=== PATIENT | female | born 1995 | race Caucasian/White ===

== ENCOUNTER 2024-08-14 08:22 | Emergency (ER) | payer SELFPAY ==
--- OUTSIDE RECORDS SUMMARY | 2024-08-14 08:31 | XMS REPORT | Continuity of Care Document ---
Author Name Unknown Address [address] [facility] [address] [place] [address] [facility] Address [address] [facility] [place] [address] Care Team Providers Care Environmental Compliance Officer Name Role Phone AMY CASTILLO Primary Care Physician Unavailab Davidson, DR REYES Attending Clinician Unavailable [phone] Attending Clinician Unavailable [id number] Attending Clinician Unavailable Doctor Unassigned, [place] Attending Clinician U marcia ESTES, DR MATHEUS BERTRAND Attending Clinician Unavailable MEERA, DR MATHEUS BERTRAND Attending Clinician Unavailable Dung Attending Clinician Unavaila DENISSE Zimmerman Attending Clinician U DENISSE Sellers Attending Clinician U Jayy Burns Attending Clinician + JAYY BYRD Attending Clinician Unavail able Maximus, Momo Nurse Attending Clinician Leighton Marin MD Attending Clinician [phone] LEIGHTON GRIFFIN Attending Clinician Unavailable 1, [facility] Room Attending Clinician UnavailDelaney Wilkins MD Attending Clinician [phone] Shanae Thornton Attending Clinician [phone] Lab, Momo Attending Clinician Unavailable 4, [facility] Room Attending Clinician UnavailVikas Zavala MD Attending Clinician [phone] VIKAS CONNELLY Attending Clinician Unavailable Service/Gensurg, Surgery C Attending Clinician U Kirit Schmid MD Attending Clinician [phone] KIRIT SEYMOUR Attending Clinician UnavailBruce Godinez MD Attending Clinician [phone] BRUCE RUIZ Attending Clinician Unavailable Didi Garcia DO Attending Clinician [phone] DIDI GARCIA Attending Clinician UnavailLEIGHTON Mcclelland Admitting Clinician Unavailable DR AMY CASTILLO Admitting Clinician Unavailable DR MATHEUS ESTES Admitting Clinician Unavailable Malik_Karuna Admitting Clinician UnavailLeighton Avery MD Admitting Clinician [phone] KIRIT SEYMOUR Admitting Clinician Unavailab BRUCE [place] Admitting Clinician Unavailable Payers Payer Name Policy Type Policy Number Effective Date Expirati on Date Source [facility] [id number] [facility] [id number] 2019 00:00:00 [id number] 2022 [facility] [id number] 2022 00:00:00 [facility] [id number] MEDICAID PENDING PENDING 2019 00:00:00 Problems Condition Name Condition Details Condition Category Status Onset Date Resolution Date Last Treatment Date Treating Clinician Comments Source PROM (premature rupture of membranes) PROM (premature rupture of membranes) Disease Active 05-25 00:00: 00 [facility] 36 weeks gestation of 36 weeks gestation of Disease Active 05-25 00:00: 00 [facility] S/P tubal ligation S/P tubal ligation Disease Active 05-25 00:00: 00 [facility] Obesity (BMI 30-39.9) Obesity (BMI 30-39.9) Disease Active 05-25 00:00: 00 [facility] Liveborn infant, of burgos , born in hospital by delivery Liveborn , of burgos , born in hospital by delivery Disease Active 05-25 00:00: 00 [facility] LGA (large for gestationa l age) fetus affecting management of mother LGA (large for gestationa l age) fetus affecting management of mother Disease Active 2019-05 00:00: 00 [facility] Shortness of breath during Shortness of breath during Disease Active 2019-05 00:00: 00 [facility] Pain of round ligament during Pain of round ligament during Disease Active 2019-05 00:00: 00 [facility] Anemia of mother in , antepartum Anemia of mother in , antepartum Disease Active 2019-05 00:00: 00 [facility] Anemia of mother in , antepartum Anemia of mother in , antepartum Disease Active 20201 1-10 00:00: 00 [facility] Vaginal yeast infection Vaginal yeast infection Disease Active 7-23 00:00: 00 [facility] Susceptibl e to varicella (non-immun e), currently Susceptibl e to varicella (non-immun e), currently Disease Active 7-15 00:00: 00 Overview: Formattin g of this note might be different from the original. Address pp [facility] Supervisio n of high-risk Supervisio n of high-risk Disease Active 7-14 00:00: 00 [facility] Multiparit y Multiparit y Disease Active 12-03 00:00: 00 [facility] History of section History of section Disease Active 12-03 00:00: 00 [facility] History of cholecyste ctomy History of cholecyste ctomy Disease Active 12-03 00:00: 00 Overview: Formattin g of this note might be different from the original. Reports in 09/2019 [facility] History of abnormal cervical Pap smear History of abnormal cervical Pap smear Disease Active 12-03 00:00: 00 Overview: Formattin g of this note might be different from the original. ROR requested today, patient reports she was told she will need a repeat pap 6 months from 05/2019, pap completed today 12-04-19 [facility] Vulvovagin al candidiasi s Vulvovagin al candidiasi s Disease Active 0 5-27 00:00: 00 [facility] Clostridiu m difficile diarrhea Clostridiu m difficile diarrhea Disease Active 20200 5-26 00:00: 00 [facility] Obesity affecting Obesity affecting Disease Active 20200 -22 00:00: 00 [facility] Cholecysti tis Cholecysti tis Disease Active 20200 5-22 00:00: 00 [facility] Cholelithi asis Cholelithi asis Disease Active 0 5-22 00:00: 00 [facility] Obesity (BMI 30-39.9) Obesity (BMI 30-39.9) Disease Active 10-11 00:00: 00 [facility] Right upper quadrant abdominal pain Right upper quadrant abdominal pain Disease Active 10-11 00:00: 00 Overview: Added automatic ally from request for surgery [id number] [facility] No known active problems No known active problems Disease [facility] Allergies, Adverse Reactions, Alerts Allergy Name Allergy Type Status Severity Reaction(s) Onset Date Inactive Date Treating Clinician Comments Source No Known Allergie s DA Active U 2018-05 00:00: 00 [facility] NO KNOWN ALLERGIE S Drug Class Active [facility] No Known Drug Allergie s MA Active UNKNOWN [facility] Social History Social Habit Start Date Stop Date Quantity Comments Source ASSERTION 2019-09-30 00:00:00 [facility] Exposure to SARS-CoV-2 (event) Not sure [facility] Gender identity [facility] Sexual orientation [facility] History SDOH Alcohol Std Drinks [facility] History SDOH Alcohol Binge [facility] Alcohol intake 2022-12-04 00:00:00 2022-12-04 00:00:00 Lifetime non-drinker (finding) [facility] Education 2020-05-25 00:00:00 2020-05-25 00:00:00 12 [facility] History SDOH Financial 2020-05-25 00:00:00 2020-05-25 00:00:00 2 [facility] History SDOH Food Worry 2020-05-25 00:00:00 2020-05-25 00:00:00 1 [facility] History SDOH Food Scarcity 2020-05-25 00:00:00 2020-05-25 00:00:00 1 [facility] History SDOH Transport Med 2020-05-25 00:00:00 2020-05-25 00:00:00 2 [facility] History SDOH Transport Non-Med 2020-05-25 00:00:00 2020-05-25 00:00:00 2 [facility] History of Social function 2019-12-04 00:00:00 2019-12-04 00:00:00 [facility] History SDOH Alcohol Frequency 2019-12-04 00:00:00 2019-12-04 00:00:00 1 [facility] Tobacco use and exposure 2019-11-06 00:00:00 2019-11-06 00:00:00 Smokeless tobacco non-user [facility] Sex Assigned At 1995 00:00:00 1995 00:00:00 [facility] Smoking Status Start Date Stop Date Source Never Smoker [facility] Unknown if ever smoked [facility] Medications Ordered Medication Name Filled Medication Name Start Date Stop Date Current Medication? Ordering Clinician Indication Dosage Frequency Signature (SIG) Comments Components Source ondansetron (ZOFRAN (PF)) injection 4 mg 12-05 06:00: 00 12-05 05:08 :00 No 4mg 4 mg, Slow IV Push, ONCE, 1 dose, On 12/05/22 at 0100, TORO [facility] morpHINE (4 mg/mL) injection 4 mg 12-05 04:15: 00 12-05 04:10 :00 No 4mg 4 mg, Slow IV Push, ONCE, 1 dose, On 12/04/22 at 2315, STAT [facility] cefTRIAXone (ROCEPHIN) 1,000 mg in NaCl 0.9% (NS) 100 mL MINI-BAG 12-05 03:00: 00 12-05 03:59 :00 No 1000mg 1,000 mg, IV Piggyback, ONCE, 1 dose, On 12/04/22 at 2200, Administer over 30 Minutes, 100 mL
Reas on for Anti-Infec tive: Documented Infection< br>Documen leanna Infection Site: Urine
D uration of Therapy: 7 days [facility] morpHINE (4 mg/mL) injection 4 mg 12-05 02:15: 00 12-05 01:46 :00 No 4mg 4 mg, Slow IV Push, ONCE, 1 dose, [facility] 2115[facility] ([facility]FRAN (PF)) [facility] 4 mg 12-05 02:15: 00 12-05 01:46 :00 No 4mg 4 mg, Slow IV Push, ONCE, 1 dose, On 12/04/22 at 2115, [facility] NaCl 0.9% (NS) bolus infusion 1,000 mL 12-05 02:15: 00 12-05 05:17 :00 No 1000mL at 999 mL/hr, 1,000 mL, IV Infusion, ONCE, 1 dose, On 12/04/22 at 2115, [facility] cefdinir 300 mg capsule 12-05 00:00: 00 12-13 04:59 :00 No [id number] 300mg Take 1 capsule by mouth every 12 (twelve) hours for 7 days. [facility] ibuprofen (IBU) tablet 600 mg 05-27 12:00: 00 Yes 600mg 600 mg, Oral, Q6H ABX, First dose on Tue05/27/20 at 0600, Until Discontinu ed, Routine [facility] vitamin w/FA tablet 05-27 00:00: 00 Yes [id number] 1{tbl} Take 1 tablet by mouth daily. [facility] docusate calcium 240 mg capsule 05-27 00:00: 00 Yes [id number] 240mg Take 1 capsule by mouth once daily as needed for Constipati on. [facility] ferrous sulfate 325 mg (65 mg iron) tablet 05-27 00:00: 00 Yes [id number] 325mg Take 1 tablet by mouth 2 (two) times daily. [facility] ibuprofen 600 mg tablet 05-27 00:00: 00 Yes [id number] 600mg Take 1 tablet by mouth every 6 (six) hours as needed (Pain). Take with food or milk. [facility] acetaminoph en 325 mg tablet 05-27 00:00: 00 Yes [id number] 650mg Take 2 tablets by mouth every 6 (six) hours as needed for Pain (scale 1-3) or Pain (scale 4-6). [facility] vitamin w/FA tablet 05-27 00:00: 00 Yes [id number] 1{tbl} Take 1 tablet by mouth daily. [facility] HYDROcodone -acetaminop hen 5-325 mg tablet 05-27 00:00: 00 06-04 05:59 :00 No [id number] 1{tbl} Take 1 tablet by mouth every 6 (six) hours as needed for Pain (scale 7-10) for up to 7 days. Indication s: acute pain [facility] gabapentin 300 mg capsule 05-27 00:00: 00 06-02 05:59 :00 No [id number] 300mg Take 1 capsule by mouth 3 (three) times daily for 5 days. [facility] acetaminoph en (TYLENOL) tablet 650 mg 05-26 21:00: 00 Yes 650mg 650 mg, Oral, Q6H ABX, First dose on Tue05/26/20 at 1500, Until Discontinu ed, Routine [facility] ascorbic acid (vitamin C) (VITAMIN C) tablet 500 mg 05-26 15:00: 00 Yes 500mg 500 mg, Oral, DAILY, First dose on Tue05/26/20 at 0900, Until Discontinu ed, Routine [facility] HYDROcodone -acetaminop hen (NORCO 5) 5-325 mg tablet 1 tablet 05-26 12:00: 00 Yes 1{tbl} 1 tablet, Oral, Q6HPRN, Starting Tue05/26/20 at 0600, Until Discontinu ed, Routine, Pain (scale 7-10) [facility] ketorolac (TORADOL) injection 30 mg 05-26 12:00: 00 05-27 05:16 :00 No 30mg 30 mg, Slow IV Push, Q6H ABX, 4 doses, First dose on Tue05/26/20 at 0600, Last dose on Tue05/27/20 at 0000, Routine
natural resources faculty member approving Restricted medication : LEIGHTON GRIFFIN [facility] acetaminoph en (TYLENOL) tablet 650 mg 05-26 09:00: 00 05-26 13:22 :00 No 650mg 650 mg, Oral, Q6H, 2 doses, First dose on Tue05/26/20 at 0300, Last dose on Tue05/26/20 at 0600, Routine [facility] simethicone (GAS RELIEF (SIMETHICON E)) chewable tablet 160 mg 05-26 03:00: 00 Yes 160mg 160 mg, Oral, PC+HS, First dose on Tue05/25/20 at 2100, Until Discontinu ed, Routine [facility] acetaminoph en ADULT (OFIRMEV) injection 1,000 mg 05-26 03:00: 00 05-26 03:18 :00 No 1000mg 1,000 mg, IV Infusion, Administer over 15 Minutes, Q6H, 1 dose, First dose on Tue05/25/20 at 2100, Routine
Indicatio n: Perioperat daljit Patient [facility] gabapentin (NEURONTIN) capsule 300 mg 05-26 02:00: 00 Yes 300mg 300 mg, Oral, TID, First dose on Tue05/25/20 at 2000, Until Discontinu ed, Routine [facility] ferrous sulfate tablet 325 mg 05-26 02:00: 00 Yes 325mg 325 mg, Oral, BID, First dose on Tue05/25/20 at 2000, Until Discontinu ed, Routine [facility] lactated ringers IV infusion 1,000 mL 05-26 01:00: 00 05-26 05:36 :00 No 1000mL at 125 mL/hr, 1,000 mL, IV Infusion, ONCE, 1 dose, 05/25/20 at 1900, Routine [facility] rho(D) immune globulin (RHOGAM) syringe 300 mcg 05-26 00:57: 20 Yes 300ug 300 mcg, Intramuscu lar, ONCE, For 1 dose, Conditiona l, Routine [facility] diphenhydrA MINE-0.9 % sod.chlr (BENADRYL) 25 mg/50 mL piggyback 25 mg 05-26 00:57: 06 Yes 25mg 25 mg, IV Piggyback, Administer over 30 Minutes, Q6HPRN, 1 dose, Starting 05/25/20 at 1857, Until Discontinu ed, Routine, Itching [facility] ondansetron (ZOFRAN (PF)) injection 4 mg 05-26 00:57: 06 Yes 4mg 4 mg, Slow IV Push, Q8HPRN, Starting [place] 05/25/20 at 1857, Until Discontinu ed, Routine, Nausea and Vomiting (N/V) [facility] docusate calcium (SURFAK) capsule 240 mg 05-26 00:57: 06 Yes 240mg 240 mg, Oral, QDAILYPRN, Starting [place] 05/25/20 at 1857, Until Discontinu ed, Routine, Constipati on [facility] magnesium hydroxide (MILK OF MAGNESIA) 400 mg/5 mL suspension 30 mL 05-26 00:57: 06 Yes 30mL 30 mL, Oral, QDAILYPRN, Starting [place] 05/25/20 at 1857, Until Discontinu ed, Routine, Constipati on [facility] diphenhydrA MINE (BENADRYL) tablet 25 mg 05-26 00:57: 05 Yes 25mg 25 mg, Oral, Q6HPRN, Starting [place] 05/25/20 at 1857, Until Discontinu ed, Routine, Sleep, Itching [facility] bisacodyL (DULCOLAX) suppository 10 mg 05-26 00:57: 05 Yes 10mg 10 mg, Rectal, QDAILYPRN, Starting [place] 05/25/20 at 1857, Until Discontinu ed, Routine, Constipati on [facility] sodium chloride 0.9 % irrigation solution 05-25 22:25: 00 Yes PRN, Starting [place] 05/25/20 at 1625, Until Discontinu ed, Intra-op [facility] naloxone (NARCAN) injection 0.4 mg 05-25 20:52: 23 05-28 00:14 :19 No .4mg 0.4 mg, Slow IV Push, PRN - SEE INSTRUCTIO NS, Starting 05/25/20 at 1452, Until 05/27/20 at 1814, Routine, Analgesia Recovery [facility] nalbuphine (NUBAIN) injection 5 mg 05-25 20:52: 22 Yes 5mg 5 mg, Intravenou s, PRN, 1 dose, Starting 05/25/20 at 1452, Until Discontinu ed, Routine, Itching [facility] terbutaline (BRETHINE) injection 0.25 mg 05-25 20:30: 00 05-25 19:34 :00 No .25mg 0.25 mg, Subcutaneo us, ONCE, 1 dose, 05/25/20 at 1430, Routine [facility] betamethaso ne acet,sod phos (CELESTONE SOLUSPAN) 6 mg/mL injection 12 mg 05-25 19:45: 00 05-25 19:05 :00 No 12mg 12 mg, Intramuscu lar, ONCE, 1 dose, 05/25/20 at 1345, Routine [facility] lactated ringers IV infusion 1,000 mL 05-25 19:45: 00 05-25 19:04 :00 No 1000mL at 999 mL/hr, 1,000 mL, IV Infusion, ONCE, 1 dose, 05/25/20 at 1345, Routine [facility] D5W-LR IV infusion 1,000 mL 05-25 18:45: 00 05-26 00:57 :22 No 1000mL at 125 mL/hr, IV Infusion, CONTINUOUS , Starting 05/25/20 at 1245, Until 05/25/20 at 1857, Routine [facility] azithromyci n (ZITHROMAX) 500 mg in NaCl 0.9% (NS) 250 mL VIAL-MATE IV piggyback 05-25 18:39: 56 05-25 21:00 :00 No 500mg 500 mg, IV Piggyback, O.R. HOLDING ONCE, 1 dose, Starting 05/25/20 at 1239, Until Discontinu ed, 250 mL
Reas on for Anti-Infec tive: Surgical Prophylaxi s
Surgi lyudmila Prophylaxi s: FUND DEVELOPMENT MANAGER< br>Duratio n of therapy: within 24 hours of surgery
Reason for Anti-Infec tive: Surgical Prophylaxi s [facility] sodium citrate-cit adelia acid (BICITRA) 500-334 mg/5 mL solution 30 mL 05-25 18:39: 25 05-25 19:36 :00 No 30mL 30 mL, Oral, PRE-PROCED URE ONCE, 1 dose, Starting 05/25/20 at 1239, Until Discontinu ed, Routine, Surgery/Pr ocedure [facility] ceFAZolin in dextrose (iso-os) (ANCEF) 2 gram/100 mL Piggyback 2 g 05-25 18:39: 24 05-25 20:00 :00 No 2000mg 2 g (2,000 mg), IV Piggyback, O.R. HOLDING ONCE, 1 dose, Starting 05/25/20 at 1239, Until Discontinu ed, 100 mL
Reas on for Anti-Infec tive: Surgical Prophylaxi s
Surgi lyudmila Prophylaxi s: FUND DEVELOPMENT MANAGER
Duration of therapy: within 24 hours of surgery [facility] ascorbic acid, vitamin C, 500 mg tablet 2019-05 00:00: 00 05-27 00:00 :00 No [id number] 500mg Take 1 tablet by mouth 3 (three) times daily. [facility] ascorbic acid, vitamin C, 500 mg tablet 2019-05 00:00: 00 Yes [id number] 500mg Take 1 tablet by mouth 3 (three) times daily. [facility] ferrous sulfate 325 mg (65 mg iron) tablet 2019-05 00:00: 00 05-27 00:00 :00 No [id number] 325mg Take 1 tablet by mouth 2 (two) times daily. [facility] proMETHazin e 25 mg tablet 2019-05 00:0005-27 00:00 :00 No [id number] 25mg Take 1 tablet by mouth every 4 (four) hours as needed for Nausea and Vomiting (N/V). [facility] terconazole 80 mg vaginal suppository 12-12 00:00: 12-16 04:59 :00 No [id number] 80mg Insert 1 Suppositor y into vagina at bedtime for 3 days. [facility] acetaminoph en 500 mg tablet 10-19 00:00: 05-27 00:00 :00 No [id number] 500mg Take 1 tablet by mouth every 6 (six) hours. [facility] ibuprofen 800 mg tablet 10-19 00:0005-27 00:00 :00 No [id number] 800mg Take 1 tablet by mouth every 6 (six) hours as needed (alternate with acetaminop hen for pain). [facility] traMADol 50 mg tablet 10-19 00:00: 05-27 00:00 :00 No [id number] 50mg Take 1 tablet by mouth every 6 (six) hours as needed for Pain (scale 4-6). [facility] ketorolac (TORADOL) injection 30 mg 10-03 10:30: 00 10-03 09:26 :00 No 30mg 30 mg, Slow IV Push, ONCE, 1 dose, Carol 10/04/19 at 0530, Routine
natural resources faculty member approving Restricted medication : BRUCE RUIZ [facility] iohexol (OMNIPAQUE 350 BULK-150 mL) injection 120 mL 10-03 10:15: 00 10-03 10:15 :00 No 120mL 120 mL, Intravenou s, ONCE, 1 dose, Carol 10/04/19 at 0515, Routine [facility] NaCl 0.9% (NS) bolus infusion 1,000 mL 10-03 10:15: 00 10-03 10:17 :00 No 1000mL at 999 mL/hr, 1,000 mL, IV Infusion, ONCE, 1 dose, Carol 10/04/19 at 0515, STAT [facility] ondansetron (ZOFRAN (PF)) injection 4 mg 10-03 10:15: 00 10-03 09:13 :00 No 4mg 4 mg, Slow IV Push, ONCE, 1 dose, Carol 10/04/19 at 0515, [facility] maalox:diph enhydrAMINE :lidocaine 2 % viscous 1:1:1 (FIRST-MOUT HWASH BLM) oral suspension 15 mL 09-29 17:15: 00 09-29 17:40 :00 No 15mL 15 mL, Oral, ONCE, 1 dose, 09/30/19 at 1215, [facility] ondansetron (ZOFRAN (PF)) injection 4 mg 09-29 16:30: 00 09-29 15:22 :00 No 4mg 4 mg, Slow IV Push, ONCE, 1 dose, 09/30/19 at 1130, [facility] morpHINE injection 4 mg 09-29 16:30: 00 09-29 15:23 :00 No 4mg 4 mg, Slow IV Push, ONCE, 1 dose, 09/30/19 at 1130, [facility] NaCl 0.9% (NS) bolus infusion 1,000 mL 09-29 16:30: 00 09-29 17:00 :00 No 1000mL at 999 mL/hr, 1,000 mL, Intravenou s, ONCE, 1 dose, 09/30/19 at 1130, [facility] sodium chloride (NS) injection 5 mL 09-29 15:18: 47 Yes 5mL 5 mL, Intravenou s, PRN, Starting 09/30/19 at 1018, Until Discontinu ed, Routine, IV line flushing [facility] acetaminoph en 300 mg-codeine 30 mg tablet TAKE ONE (1) TABLET BY MOUTH EVERY 6 (SIX) HOURS NEEDED FOR PAIN. acetaminoph en 300 mg-codeine 30 mg tablet TAKE ONE (1) TABLET BY MOUTH EVERY 6 (SIX) HOURS NEEDED FOR PAIN. No acetaminop hen 300 mg-codeine 30 mg tablet TAKE ONE (1) TABLET BY MOUTH EVERY 6 (SIX) HOURS NEEDED FOR PAIN. [facility] ibuprofen 800 mg tablet Take 1 tablet 3 times a day by oral route for 1 day. ibuprofen 800 mg tablet Take 1 tablet 3 times a day by oral route for 1 day. No 1 TID ibuprofen 800 mg tablet Take 1 tablet 3 times a day by oral route for [address] [facility] No known medications No [facility] Immunizations Ordered Immunization Name Filled Immunization Name Date Status Comments Source Influenza Virus Vaccine Quad .5 mL IM 6+ MO 2020-04-01 00:00:00 Completed [facility] TDAP 2020-04-01 00:00:00 Completed [facility] Influenza Virus Vaccine Quad .5 mL IM 6+ MO 2020-04-01 00:00:00 Completed [facility] TDAP 2020-04-01 00:00:00 Completed [facility] Influenza Virus Vaccine Quad .5 mL IM 6+ MO 2020-04-01 00:00:00 Completed [facility] TDAP 2020-04-01 00:00:00 Completed [facility] Influenza Virus Vaccine Quad .5 mL IM 6+ MO 2020-04-01 00:00:00 Completed [facility] TDAP 2020-04-01 00:00:00 Completed [facility] Influenza Virus Vaccine Quad .5 mL IM 6+ MO 2020-04-01 00:00:00 Completed [facility] TDAP 2020-04-01 00:00:00 Completed [facility] Influenza Virus Vaccine Quad .5 mL IM 6+ MO 2020-04-01 00:00:00 Completed [facility] TDAP 2020-04-01 00:00:00 Completed [facility] Influenza Virus Vaccine Quad .5 mL IM 6+ MO 2020-04-01 00:00:00 Completed [facility] TDAP 2020-04-01 00:00:00 Completed [facility] Influenza Virus Vaccine Quad .5 mL IM 6+ MO 2020-04-01 00:00:00 Completed [facility] TDAP 2020-04-01 00:00:00 Completed [facility] Influenza Virus Vaccine Quad .5 mL IM 6+ MO 2020-04-01 00:00:00 Completed [facility] TDAP 2020-04-01 00:00:00 Completed [facility] Influenza Virus Vaccine Quad .5 mL IM 6+ MO 2020-04-01 00:00:00 Completed [facility] TDAP 2020-04-01 00:00:00 Completed [facility] Influenza Virus Vaccine Quad .5 mL IM 6+ MO 2020-04-01 00:00:00 Completed [facility] TDAP 2020-04-01 00:00:00 Completed [facility] Influenza Virus Vaccine Quad .5 mL IM 6+ MO 2020-04-01 00:00:00 Completed [facility] TDAP 2020-04-01 00:00:00 Completed [facility] Influenza Virus Vaccine Quad .5 mL IM 6+ MO 2020-04-01 00:00:00 Completed [facility] TDAP 2020-04-01 00:00:00 Completed [facility] Influenza Virus Vaccine Quad .5 mL IM 6+ MO 2020-04-01 00:00:00 Completed [facility] TDAP 2020-04-01 00:00:00 Completed [facility] Influenza Virus Vaccine Quad .5 mL IM 6+ MO (FLUZONE/FLULAVAL/F LUARIX) Unknown Completed [facility] TDAP Unknown Completed [facility] Vital Signs Vital Name Observation Time Observation Value Comments S ource BP Diastolic 2022-12-09 00:00:00 75 mm[Hg] [place] [facility] Height 2022-12-09 00:00:00 61 [in_i] [place] [facility] BMI (Body Mass Index) 2022-12-09 00:00:00 40.6 kg/m2 [place] [facility] BP Systolic 2022-12-09 00:00:00 112 mm[Hg] [place] [facility] Body Weight 2022-12-09 00:00:00 215 [lb_av] [place] [facility] Heart rate 2022-12-05 05:06:00 97 /min [facility] Respiratory rate 2022-12-05 05:06:00 20 /min [facility] Oxygen saturation in Arterial blood by Pulse oximetry 2022-12-05 05:06:00 96 /min [facility] Systolic blood pressure 2022-12-05 05:00:00 109 mm[Hg] [facility] Diastolic blood pressure 2022-12-05 05:00:00 69 mm[Hg] [facility] Body temperature 2022-12-05 01:02:00 37.72 [facility] Body height 2022-12-05 01:02:00 157.5 cm [facility] Body weight 2022-12-05 01:02:00 102.059 kg [facility] BMI 2022-12-05 01:02:00 41.15 kg/m2 [facility] Systolic blood pressure 2020-06-02 19:11:00 133 mm[Hg] [facility] Diastolic blood pressure 2020-06-02 19:11:00 73 mm[Hg] [facility] Heart rate 2020-06-02 19:11:00 84 /min [facility] Body temperature 2020-06-02 19:11:00 36.83 Helene [facility] Respiratory rate 2020-06-02 19:11:00 16 /min [facility] Body height 2020-06-02 19:11:00 157.5 cm [facility] Body weight 2020-06-02 19:11:00 79.89 kg [facility] BMI 2020-06-02 19:11:00 32.21 kg/m2 [facility] Systolic blood pressure 2020-05-27 13:54:00 123 mm[Hg] [facility] Diastolic blood pressure 2020-05-27 13:54:00 71 mm[Hg] [facility] Heart rate 2020-05-27 13:54:00 90 /min [facility] Body temperature 2020-05-27 13:54:00 37.06 Helene [facility] Respiratory rate 2020-05-27 13:54:00 18 /min [facility] Oxygen saturation in Arterial blood by Pulse oximetry 2020-05-27 11:00:00 99 /min [facility] Body height 2020-05-25 18:00:00 157.5 cm [facility] Body weight 2020-05-25 18:00:00 86.909 kg Univ [facility] BMI 2020-05-25 18:00:00 35.04 kg/m2 [facility] Systolic blood pressure 2020-05-13 21:23:00 121 mm[Hg] [facility] Diastolic blood pressure 2020-05-13 21:23:00 74 mm[Hg] [facility] Heart rate 2020-05-13 21:23:00 111 /min [facility] Body temperature 2020-05-13 21:23:00 36.61 Helene [facility] Respiratory rate 2020-05-13 21:23:00 16 /min [facility] Body height 2020-05-13 21:23:00 157.5 cm [facility] Body weight 2020-05-13 21:23:00 88.536 kg Univ [facility] BMI 2020-05-13 21:23:00 35.70 kg/m2 [facility] Systolic blood pressure 2020-04-30 20:09:00 121 mm[Hg] [facility] Diastolic blood pressure 2020-04-30 20:09:00 76 mm[Hg] [facility] Heart rate 2020-04-30 20:09:00 113 /min [facility] Body temperature 2020-04-30 20:09:00 36.17 Helene [facility] Respiratory rate 2020-04-30 20:09:00 16 /min [facility] Body height 2020-04-30 20:09:00 157.5 cm [facility] Body weight 2020-04-30 20:09:00 88.933 kg Univ [facility] BMI 2020-04-30 20:09:00 35.86 kg/m2 [facility] Systolic blood pressure 2020-04-16 19:07:00 115 mm[Hg] [facility] Diastolic blood pressure 2020-04-16 19:07:00 74 mm[Hg] [facility] Heart rate 2020-04-16 19:07:00 119 /min [facility] Body temperature 2020-04-16 19:07:00 36.33 Helene [facility] Respiratory rate 2020-04-16 19:07:00 16 /min [facility] Body height 2020-04-16 19:07:00 157.5 cm [facility] Body weight 2020-04-16 19:07:00 87.289 kg [facility] BMI 2020-04-16 19:07:00 35.20 kg/m2 [facility] Systolic blood pressure 2020-04-01 20:10:00 112 mm[Hg] [facility] Diastolic blood pressure 2020-04-01 20:10:00 74 mm[Hg] [facility] Heart rate 2020-04-01 20:10:00 112 /min [facility] Body temperature 2020-04-01 20:10:00 36.78 Helene [facility] Respiratory rate 2020-04-01 20:10:00 16 /min [facility] Body height 2020-04-01 20:10:00 157.5 cm [facility] Body weight 2020-04-01 20:10:00 87.658 kg Univ [facility] BMI 2020-04-01 20:10:00 35.35 kg/m2 [facility] Systolic blood pressure 2020-03-17 20:28:00 131 mm[Hg] [facility] Diastolic blood pressure 2020-03-17 20:28:00 77 mm[Hg] [facility] Heart rate 2020-03-17 20:28:00 109 /min [facility] Body temperature 2020-03-17 20:28:00 36.83 Helene [facility] Respiratory rate 2020-03-17 20:28:00 16 /min [facility] Body height 2020-03-17 20:28:00 157.5 cm [facility] 2020-03-17 20:28:00 88.622 kg [facility] BMI 2020-03-17 20:28:00 35.73 kg/m2 [facility] Systolic blood pressure 2020-01-01 19:24:00 126 mm[Hg] [facility] Diastolic blood pressure 2020-01-01 19:24:00 75 mm[Hg] [facility] Heart rate 2020-01-01 19:24:00 99 /min [facility] Body temperature 2020-01-01 19:24:00 36.5 Helene [facility] Respiratory rate 2020-01-01 19:24:00 16 /min [facility] Body height 2020-01-01 19:24:00 157.5 cm [facility] Body weight 2020-01-01 19:24:00 86.354 kg Univ [facility] BMI 2020-01-01 19:24:00 34.82 kg/m2 [facility] Systolic blood pressure 2019-12-04 13:45:00 112 mm[Hg] [facility] Diastolic blood pressure 2019-12-04 13:45:00 68 mm[Hg] [facility] Heart rate 2019-12-04 13:45:00 92 /min [facility] Body temperature 2019-12-04 13:45:00 37 Helene [facility] Respiratory rate 2019-12-04 13:45:00 16 /min [facility] Body height 2019-12-04 13:45:00 157.5 cm [facility] Body weight 2019-12-04 13:45:00 86.807 kg Univ [facility] BMI 2019-12-04 13:45:00 35.00 kg/m2 [facility] Systolic blood pressure 2019-11-06 17:15:00 106 mm[Hg] [facility] Diastolic blood pressure 2019-11-06 17:15:00 69 mm[Hg] [facility] Heart rate 2019-11-06 17:15:00 86 /min [facility] 2019-11-06 17:15:00 36.83 Helene [facility] Respiratory rate 2019-11-06 17:15:00 15 /min [facility] Body height 2019-11-06 17:15:00 157.5 cm [facility] Body weight 2019-11-06 17:15:00 87.544 kg [facility] BMI 2019-11-06 17:15:00 35.30 kg/m2 [facility] Systolic blood pressure 2019-10-04 09:00:00 124 mm[Hg] [facility] Diastolic blood pressure 2019-10-04 09:00:00 89 mm[Hg] [facility] Heart rate 2019-10-04 09:00:00 117 /min [facility] Respiratory rate 2019-10-04 09:00:00 18 /min [facility] Oxygen saturation in Arterial blood by Pulse oximetry 2019-10-04 09:00:00 98 /min [facility] Body temperature 2019-10-04 08:46:00 36.56 Helene [facility] Body height 2019-10-04 08:46:00 157.5 cm [facility] Body weight 2019-10-04 08:46:00 90.719 kg [facility] BMI 2019-10-04 08:46:00 36.58 kg/m2 [facility] Systolic blood pressure 2019-09-30 18:08:00 120 mm[Hg] [facility] Diastolic blood pressure 2019-09-30 18:08:00 72 mm[Hg] [facility] Heart rate 2019-09-30 18:08:00 98 /min [facility] Respiratory rate 2019-09-30 18:08:00 18 /min [facility] Oxygen saturation in Arterial blood by Pulse oximetry 2019-09-30 18:08:00 98 /min [facility] Body weight 2019-09-30 15:14:00 90.719 kg [facility] Procedures Procedure Date / Time Performed Performing Clinician Source US, transvaginal 2022-12-09 00:00:00 Conner castaneda [facility] HB ABO GROUPING 2022-12-05 01:43:00 Denisse Lopez [facility] LIPASE 2022-12-05 01:39:00 Denisse Lopez [facility] TEST, SERUM 2022-12-05 01:39:00 Denisse Mendez [facility] COMP. METABOLIC PANEL ([id number]) 2022-12-05 01:39:00 Denisse Zacarias [facility] CBC WITH DIFF 2022-12-05 01:39:00 Denisse Lopez [facility] URINALYSIS 2022-12-05 01:39:00 Denisse Lopez [facility] CONSENT/REFUSAL FOR DIAGNOSIS AND TREATMENT 2022-12-05 00:53:28 Doctor Unassigned, [place] [facility] CBC WITH DIFF 2020-05-26 08:58:00 Leighton Griffin [facility] VENOUS CORD GAS 2020-05-25 20:54[facility] 2020-05-25 20:52:00 [facility]FF 2020-05-25 18:56:00 Leighton Griffin [facility] HEPATITIS B SURFACE ANTIGEN 2020-05-25 18:56:00 Leighton Griffin [facility] ADC OR SAMIR ONLY - RPR 2020-05-25 18:56:00 Daily Griffin [facility] HIV 1/2 AG-AB WITH REFLEX 2020-05-25 18:56:00 Daily Griffin [facility] COVID-19 (ID NOW RAPID TESTING) 2020-05-25 18:56:00 Leighton Griffin [facility] LAB ONLY COVID INTERPRETATION 2020-05-25 18:56:00 Leighton Griffin [facility] HB ABO GROUPING 2020-05-25 18:54:00 Leighton Griffin [facility] RHO (D) IMMUNE GLOBULIN 2020-05-25 18:54:00 Leighton Griffin [facility] NOTICE OF PRIVACY PRACTICES 2020-05-25 17:45:08 Doctor Unassigned, [place] [facility] CONSENT/REFUSAL FOR DIAGNOSIS AND TREATMENT 2020-05-25 17:40:34 Doctor Unassigned, [place] [facility] ASSIGNMENT OF BENEFITS 2020-05-25 17:40:18 Docto r Unassigned, [place] [facility] POCT URINALYSIS 2020-05-13 21:26:00 Jayy Byrd [facility] POCT URINALYSIS 2020-04-30 20:10:00 Jayy Byrd [facility] POCT URINALYSIS 2020-04-16 19:09:00 Jayy Byrd [facility] TDAP VACCINE, >11 YRS, IM 2020-04-01 20:40:46 Jayy Byrd [facility] FLU VACC ([id number]), 6+ MONTHS, IM, QUAD 2020-04-01 20:40:40 Jayy Byrd [facility] POCT URINALYSIS 2020-04-01 20:11:00 Jayy Byrd [facility] STERILIZATION CONSENT FORM 2020-04-01 06:01:00 Flaca santos Unassigned, [place] [facility] POCT URINALYSIS 2020-03-17 20:29:00 Jayy Byrd [facility] POCT URINALYSIS 2020-01-01 19:27:00 Jayy Byrd [facility] PAP SMEAR-LIQUID BASED-CP 2019-12-04 15:55:00 Jayy Byrd [facility] GLUCOSE 1 HOUR POST PRANDIAL 2019-12-04 14:47:00 Jayy Byrd [facility] CBC WITH DIFFERENTIAL 2019-12-04 14:47:00 Antonio Byrd [facility] RUBELLA SCREEN IGG 2019-12-04 14:47:00 Meet Byrd [facility] VZV ANTIBODY SCREEN 2019-12-04 14:47:00 Benja Byrd [facility] HEPATITIS B SURFACE ANTIGEN 2019-12-04 14:47:00 Jayy Byrd [facility] HB ABO GROUPING 2019-12-04 14:47:00 Jayy Byrd [facility] HIV 1/2 AG-AB WITH REFLEX 2019-12-04 14:47:00 Jayy Byrd [facility] GALV ONLY - SYPHILIS IGG/IGM 2019-12-04 14:47:00 Jayy Byrd [facility] SARS-COV-2 IGG 2019-12-04 14:47:00 Jayy Byrd [facility] POCT URINALYSIS W/O SPECIFIC GRAVITY 2019-12-04 13:37:00 Jayy Byrd [facility] POCT TEST 2019-12-04 13:33:00 Benja Byrd [facility] CONSENT/REFUSAL FOR DIAGNOSIS AND TREATMENT 2019-12-04 13:06:59 Doctor Unassigned, [place] [facility] CT ABDOMEN PELVIS W CONTRAST 2019-10-04 10:00:03 Bruce Ruiz [facility] LIPASE 2019-10-04 09:11:00 Bruce Ruiz [facility] COMP. METABOLIC PANEL ([id number]) 2019-10-04 09:11:00 Bruce Ruiz [facility] CBC WITH DIFFERENTIAL 2019-10-04 09:11:00 Bruce Ruiz [facility] URINALYSIS 2019-10-04 09:11:00 Bruce Ruiz [facility] POCT TEST 2019-10-04 09:10:00 Bruce Ruiz [facility] LIPASE 2019-09-30 15:21:00 [facility] COMP. METABOLIC PANEL ([id number]) 2019-09-30 15:21:00 Didi Garcia [facility] CBC WITH DIFFERENTIAL 2019-09-30 15:21:00 Sa emilia Garcia [facility] URINALYSIS 2019-09-30 15:21:00 [facility] 2019-09-30 15:21:00 Dali Garcia ra [facility] NOTICE OF PRIVACY PRACTICES 2019-09-30 15:01:44 Doctor Unassigned, [place] [facility] CONSENT/REFUSAL FOR DIAGNOSIS AND TREATMENT 2019-09-30 15:01:28 Doctor Unassigned, [place] [facility] Caesarean Section [place] [facility] Cholecystectomy [place] [facility] Tubal Ligation [place] [facility] SECTION Leighton Griffin [facility] TUBAL LIGATION Margarito [facility] o f [facility] Plan of Care Planned Activity Planned Date Details Comments Source Diagnostic Test Pending 2022-12-09 00:00:00 lh + FSH, serum [code = lh + FSH, serum] [facility] Diagnostic Test Pending 2022-12-09 00:00:00 prolactin, serum [code = prolactin, serum] [facility] Diagnostic Test Pending 2022-12-09 00:00:00 CBC w/ auto diff [code = CBC w/ auto diff[facility] Diagnostic Test Pending 2022-12-09 00:00:00 TSH + free T4, serum [code = TSH + free T4, serum] [facility] Diagnostic Test Pending 2022-12-09 00:00:00 pap, IG + CT/NG/TV + HR HPV + reflex HPV (16+18+45) [code = pap, IG + CT/NG/TV + HR HPV + reflex HPV (16+18+45)] [facility] Encounters Start Date/Time End Date/Time Encounter Type Admission Type Attending Clinicians Care Facility Care Department Encounter ID Source 2022-11-25 06:56:44 Outpatient [facility] [id number] [facility] 2022-03-03 15:12:00 Outpatient [facility] [id number] [facility] 2021-12-18 16:45:18 Outpatient [facility] [id number] [facility] 2021-03-21 14:35:45 Outpatient P [facility] RG [id number] [facility] 2023-08-10 21:31:00 2023-08-10 23:10:00 Emergency E AMY CASTILLO [id number] [facility] [id number] [facility] 2023-03-08 19:41:00 2023-03-08 21:45:00 Emergency E [facility] [id number] [facility] [id number] [facility] 2022-12-22 00:00:00 2022-12-22 00:00:00 Patient Secure Msg Doctor Unassigned[facility] [place] [facility] [id number] 350.1.13.10 4.2.7.2.686 [id number] [facility] 2022-12-09 13:09:00 2022-12-09 23:59:00 Outpatient C STEPHANIE-IBITO YE, MATHEUS GILMAN, MATHEUS [facility] RAD [id number] [facility] 2022-12-09 00:00:00 2022-12-09 00:00:00 Outpatient Ayeni_Ibito ye_Olubu [facility] [id number] [facility] 2022-12-09 00:00:00 2022-12-09 00:00:00 Matheus Gilmore MD: [id number], [place] [address] , Ph. [phone] [facility] assistant drafter [place] [id number] [facility] 2022-12-06 00:00:00 2022-12-06 00:00:00 Outpatient Ayeni_Ibito ye_Olubu [facility] [id number] [facility] 2022-12-04 20:09:00 2022-12-05 00:25:00 Emergency X ALBIN SHERIFF, DENISSE YEUNGSYLVAIN SAEZJimenez DENISSE [facility] ERT [id number] [facility] 2022-12-04 20:09:00 2022-12-05 00:25:00 Emergency Albin BrandtbiankaDenisse okeefe O. [facility] ..840.114 350.1.13.10 4.2.7.2.686 [id number] [facility] 2022-11-25 06:14:00 2022-11-25 09:54:00 Emergency E AMY CASTILLO [id number] [facility] EMERGENCY ROOM [id number] [facility] 2020-06-20 00:00:00 2020-06-20 00:00:00 Letter (Out) Jayy Byrd [facility] FUND DEVELOPMENT MANAGER [facility] CHILD [facility] 1..840.114 350.1.13.10 4.2.7.2.686 [id number] [facility] 2020-06-16 12:45:00 2020-06-16 12:45:00 Outpatient JAYY WHALEY [facility] [id number] [facility] 2020-06-02 12:53:58 2020-06-02 13:30:52 Nurse Visit Visit, Khris-Rmchp Nurse Jayy Byrd [facility]D [facility]ELOP[facility] ..840.114 350.1.13.10 4.2.7.2.686 [id number] [facility] 2020-06-02 13:00:00 2020-06-02 13:00:00 Outpatient JYAY WHALEY [facility] [id number] [facility] 2020-05-29 10:45:00 2020-05-29 10:45:00 Outpatient JAYY WHALEY [facility] [id number] [facility] 2020-05-25 11:40:00 2020-05-27 12:10:00 Hospital Encounter Leighton Griffin Joe [facility] 1.2840.114 350.1.13.10 4.2.7.2.686 [id number] [facility] 2020-05-25 11:40:00 2020-05-25 11:40:00 Outpatient P LEIGHTON GRIFFIN [facility] RG [id number] [facility] 2020-05-22 00:00:00 2020-05-22 00:00:00 Abstract ClaudinemarenJayy mora [facility] FUND DEVELOPMENT MANAGER [facility] & CHILD [facility] 1.2840.114 350.1.13.10 4.2.7.2.686 [id number] [facility] 2020-05-22 00:00:00 2020-05-22 00:00:00 Telephone Claudinegeorgina Jayy Wagner [facility] FUND DEVELOPMENT MANAGER [facility] 1.2840.114 350.1.13.10 4.2.7.2.686 [id number] [facility] 2020-05-21 00:00:00 2020-05-21 00:00:00 Abstract Meet Byrdsylvain Wagner [facility] FUND DEVELOPMENT MANAGER [facility]ILD [facility] 1.2840.114 350.1.13.10 4.2.7.2.686 [id number] [facility] 2020-05-19 15:26:54 2020-05-19 16:47:36 Executive Director Visit 1, [facility] Us Room Delaney Freeman [facility] 1.20.114 350.1.13.10 4.2.7.2.686 [id number] [facility] 2020-05-19 15:30:00 2020-05-19 15:30:00 Outpatient P [facility] [id number] [facility] 2020-05-19 14:30:00 2020-05-19 14:30:00 Outpatient P [facility] [id number] [facility] 2020-05-13 15:10:49 2020-05-13 15:43:22 Routine Visit Jayy Byrd LARAVI FUND DEVELOPMENT MANAGER [facility]ILD [facility] 1..840.114 350.1.13.10 4.2.7.2.686 [id number] [facility] 2020-05-13 15:15:00 2020-05-13 15:15:00 Outpatient R JAYY BYRD [facility] [id number] [facility] 2020-04-30 14:00:29 2020-04-30 14:32:08 Routine Visit Jayy Byrd [facility] FUND DEVELOPMENT MANAGER [facility] CHILD [facility] 1..840.114 350.1.13.10 4.2.7.2.686 [id number] [facility] 2020-04-30 14:00:00 2020-04-30 14:00:00 Outpatient R JAYY BYRD [facility] [id number] [facility] 2020-04-16 12:59:12 2020-04-16 13:32:35 Routine Visit Jayy Byrd [facility] FUND DEVELOPMENT MANAGER [facility] ..840.114 350.1.13.10 4.2.7.2.686 [id number] [facility] 2020-04-16 13:00:00 2020-04-16 13:00:00 Outpatient R JAYY BYRD [facility] [id number] [facility] 2020-04-10 00:00:00 2020-04-10 00:00:00 Telephone Jayy Byrd [facility] FUND DEVELOPMENT MANAGER [facility] 1..840.114 350.1.13.10 4.2.7.2.686 [id number] [facility] 2020-04-01 13:53:55 2020-04-01 14:40:45 Routine Visit Jayy Byrd [facility] FUND DEVELOPMENT MANAGER [facility] 1.2.840.114 350.1.13.10 4.2.7.2.686 [id number] [facility] 2020-04-01 14:00:00 2020-04-01 14:00:00 Outpatient R JAYY BYRD [facility] [id number] [facility] 2020-04-01 00:00:00 2020-04-01 00:00:00 Orders Only Doctor Unassigned[facility] [place] [facility] 1.2.840.114 350.1.13.10 4.2.7.2.686 [id number] [facility] 2020-03-27 00:00:00 2020-03-27 00:00:00 Telephone Shanae Wilson [facility] FUND DEVELOPMENT MANAGER [facility]ILD [facility] 1.2.840.114 350.1.13.10 4.2.7.2.686 [id number] [facility] 2020-03-27 00:00:00 2020-03-27 00:00:00 Telephone Jayy Byrd [facility] FUND DEVELOPMENT MANAGER [facility] 1.2.840.114 350.1.13.10 4.2.7.2.686 [id number] [facility] 2020-03-26 12:46:31 2020-03-26 13:01:31 Executive Director Visit Lab, Khris-Rmchp Jayy Byrd [facility] FUND DEVELOPMENT MANAGER [facility] 1.2.840.114 350.1.13.10 4.2.7.2.686 [id number] [facility] 2020-03-26 12:45:00 2020-03-26 12:45:00 Outpatient R JAYY BYRD [facility] [id number] [facility] 2020-03-17 15:23:26 2020-03-17 16:14:07 Routine Visit Jayy Byrd LARAVI FUND DEVELOPMENT MANAGER [facility] 1.2.840.114 350.1.13.10 4.2.7.2.686 [id number] [facility] 2020-03-17 15:30:00 2020-03-17 15:30:00 Outpatient R JAYY BYRD [facility] [id number] [facility] 2020-02-18 00:00:00 2020-02-18 00:00:00 Abstract Jayy Byrd [facility] FUND DEVELOPMENT MANAGER [facility] 1.2.840.114 350.1.13.10 4.2.7.2.686 [id number] [facility] 2020-02-14 13:12:09 2020-02-14 14:27:09 Executive Director Visit 4, [facility] Vikas Connelly [facility] 1.2.840.114 350.1.13.10 4.2.7.2.686 [id number] [facility] 2020-02-14 14:00:00 2020-02-14 14:00:00 Outpatient P [facility] [id number] [facility] 2020-02-14 13:00:00 2020-02-14 13:00:00 Outpatient P VIKAS CONNELLY [facility] [id number] [facility] 2020-01-29 14:00:00 2020-01-29 14:00:00 Outpatient R JAYY BYRD [facility] [id number] [facility] 2020-01-01 14:18:35 2020-01-01 15:13:50 Routine Visit Jayy Byrd [facility] FUND DEVELOPMENT MANAGER [facility] 1.840.114 350.1.13.10 4.2.7.2.686 [id number] [facility] 2020-01-01 14:00:00 2020-01-01 14:00:00 Outpatient Ramesh CHOWLOBITO ROILOLA [facility] [id number] [facility] 2019-12-13 00:00:00 2019-12-13 00:00:00 Telephone Jayy Byrd [facility] FUND DEVELOPMENT MANAGER [facility] 1.840.114 350.1.13.10 4.2.7.2.686 [id number] [facility] 2019-12-04 08:28:39 2019-12-04 09:29:15 Initial Visit ClaudinegeorginaLobitoJayy C [facility] FUND DEVELOPMENT MANAGER [facility]ILD [facility] 1.840.114 350.1.13.10 4.2.7.2.686 [id number] [facility] 2019-12-04 08:30:00 2019-12-04 08:30:00 Outpatient R CLAUDINELOBITO ROILOLA [facility] [id number] [facility] 2019-12-04 00:00:00 2019-12-04 00:00:00 Orders Only Doctor Unassigned, [place] [facility] 1.84.114 350.1.13.10 4.2.7.2.686 [id number] [facility] 2019-11-06 11:02:39 2019-11-06 12:22:54 Office Visit Service/Gen surg, Surgery Kirit Gallegos [facility] 1..114 350.1.13.10 4.2.7.2.686 [id number] [facility] 2019-11-06 11:15:00 2019-11-06 11:15:00 Outpatient KIRIT RM [facility] [id number] [facility] 2019-10-30 10:45:00 2019-10-30 10:45:00 Outpatient R [facility] [id number] [facility] 2019-10-12 10:20:22 2019-10-20 14:17:00 Inpatient X KIRIT SEYMOUR [facility] [id number] [facility] 2019-10-04 03:56:42 2019-10-04 05:23:00 Emergency Bruce Ruiz [facility] 1.2.840.114 350.1.13.10 4.2.7.2.686 [id number] [facility] 2019-10-04 03:56:42 2019-10-04 05:23:00 Emergency X BRUCE RUIZ [facility] ERT [id number] [facility] 2019-09-30 10:07:17 2019-09-30 13:39:00 Emergency Didi Garcia [facility] 1.2.840.114 350.1.13.10 4.2.7.2.686 [id number] [facility] 2019-09-30 09:59:00 2019-09-30 09:59:00 Emergency X DIDI GARCIA [facility] ERT [id number] [facility] Results Test Description Test Time Test Comments Results Resul t Comments Source U/S NON ENDOVAGINAL *OW* 2022-12-09 16:15:31 [facility] 1995 Sex: F EX AMINATION:U/S PELVIS *OW* (accession [id number]), U/S NON ENDOVAGINAL *OW* (accession [id number])CLINICAL INDICATION:Female, 27 years old with Abnormal uterine bleeding unrelated to menstrual cycle;N93.9COMPARISON : NoneTECHNIQUE:Transva ginal and transabdominal imaging of the pelvis is performed utilizing grayscale, color Doppler, and spectral waveform analysis.FINDINGS:[place]: The uterus measures 9.4 x 5.4 x 6.9 cm. The endometrium measures 14 mm, and is homogeneous in echotexture. No focal uterine mass lesions are visualized. Cervix: No focal cervical masses are seen.Ovaries: The right ovary measures 4.2 x 1.9 x 2.6 cm. The left ovary measures 4.4 x 2.5 x 2.6 cm. Normal Color flow and Doppler waveforms present bilaterally. Small follicles noted bilaterally. There is no adnexal mass.Pelvis: There is no free fluid in the pelvis.IMPRESSION:No acute sonographic abnormality. Electronically signed by: Angelito Sanford MD 12/09/2022 4:15 PM CDT U/S PELVIS *OW* 2022-12-09 16:15:31 [facility] 1995 Sex: F EX AMINATION:U/S PELVIS *OW* (accession [id number]), U/S NON ENDOVAGINAL *OW* (accession [id number])CLINICAL INDICATION:Female, 27 years old with Abnormal uterine bleeding unrelated to menstrual cycle;N93.9COMPARISON : NoneTECHNIQUE:Transva ginal and transabdominal imaging of the pelvis is performed utilizing grayscale, color Doppler, and spectral waveform analysis.FINDINGS:[place]: The uterus measures 9.4 x 5.4 x 6.9 cm. The endometrium measures 14 mm, and is homogeneous in echotexture. No focal uterine mass lesions are visualized. Cervix: No focal cervical masses are seen.Ovaries: The right ovary measures 4.2 x 1.9 x 2.6 cm. The left ovary measures 4.4 x 2.5 x 2.6 cm. Normal Color flow and Doppler waveforms present bilaterally. Small follicles noted bilaterally. There is no adnexal mass.Pelvis: There is no free fluid in the pelvis.IMPRESSION:No acute sonographic abnormality. Electronically signed by: Angelito Sanford MD 12/09/2022 4:15 PM CDT [facility]. METABOLIC PANEL ([id number])2022-12-05 02:37:00* Test Item Value Reference Range Interpretation Comme nts NA (test code = 6008360698) 137 mmol/L 135-145 K (test code = 6909400086) 4.4 mmol/L 3.5-5.0 CL (test code = 8126559003) 102 mmol/L 98-108 CO2 TOTAL (test code = 2732543462) 27 mmol/L 23-31 AGAP (test code = 2758864478) 8 2-16 BUN (test code = 1748706098) 16 mg/dL 7-23 GLUCOSE (test code = 1386742502) 92 mg/dL 70-110 CREATININE (test code = 6494517602) 0.66 mg/dL 0.50-1.04 TOTAL BILI (test code = 0843816436) 0.4 mg/dL 0.1-1.1 CALCIUM (test code = 2513076049) 9.0 mg/dL 8.6-10.6 T PROTEIN (test code = 3914156209) 7.5 g/dL 6.3-8.2 ALBUMIN (test code = 9636546505) 4.1 g/dL 3.5-5.0 ALK PHOS (test code = 6536652011) 123 U/L 34-122 H ALTv (test code = 1742-6) 25 U/L 5-35 AST(SGOT) (test code = 8925472301) 24 U/L 13-40 eGFR (test code = 6558978131) 109.1 mL/min/1.73m2 BEATRIZ (test code = BEATRIZ) Association of Glomerular Filtration Rate (GFR) and Staging of Kidney Disease* + --+ --+ ------+| GFR (mL/min/1.73 m2) ?| With Kidney Damage ?| ?Without Kidney Damage+ --------+ --------+ +| ?>90 ?| ?Stage one ?| ? Normal ?+ ---+ ---+ -------+| ?60-89 ?| ?Stage two ?| ? Decreased GFR ? + --+ --+ ------+| ?30-59 ?| ?Stage three ?| ? Stage three ? + --+ --+ ------+| ?15-29 ?| ?Stage four ? | ? Stage four ?+ ---+ ---+ -------+| ?<15 (or dialysis) ? ?| ?Stage five ? | ? Stage five ?+ ---+ ---+ -------+ *Each stage assumes the associated GFR level has been in effect for at least three months. ?Stages 1 to 5, with or without kidney disease, indicate chronic kidney disease. Notes: Determination of stages one and two (with eGFR >59mL/min/1.73 m2) requires estimation of kidney damage for at least three months as defined by structural or functional abnormalities of the kidney, manifested by either:Pathological abnormalities or Markers of kidney damage (including abnormalities in the composition of the blood or urine or abnormalities in imaging tests). Lab Interpretation (test code = 46131-4) [facility]normal [facility]:36:19* Test Item Value Reference Range Interpretation Comme nts LIPASE (test code = 1507725838) 53 U/L 0-220 Lab Interpretation (test cod e = 70172-3) Normal [facility] WITH [id number] 02:26:17* Test Item Value Reference Range Interpretation Comme nts WBC (test code = 6690-2) 10.25 See_Comment [Automated [employer]] The system which generated this result transmitted reference range: 4.30 - 11.10 10*3/?L. The reference range was not used to interpret this result as normal/abnormal. RBC (test code = 789-8) 4.37 See_Comment [Automated messa ge] The system which generated this result transmitted reference range: 3.93 - 5.25 10*6/?L. The reference range was not used to interpret this result as normal/abnormal. HGB (test code = 718-7) 13.4 g/dL 11.6-15.0 HCT (test code = 4544-3) 38.5 % 35.7-45.2 MCV (test code = 787-2) 88.1 fL 80.6-95.5 MCH (test code = 785-6) 30.7 pg 25.9-32.8 MCHC (test code = 786-4) 34.8 g/dL 31.6-35.1 RDW-SD (test code = 69719-3) 39.3 fL 39.0-49.9 RDW-CV (test code = 788-0) 12.2 % 12.0-15.5 PLT (test code = 777-3) 295 See_Comment [Automated messa ge] The system which generated this result transmitted reference range: 166 - 358 10*3/?L. The reference range was not used to interpret this result as normal/abnormal. MPV (test code = 27341-4) 9.7 fL 9.5-12.9 NRBC/100 WBC (test code = 5512925519) 0.0 See_Comment [Automated [employer] ssage] The system which generated this result transmitted reference range: 0.0 - 10.0 /100 WBCs. The reference range was not used to interpret this result as normal/abnormal. NRBC x10^3 (test code = 0617087137) See_Comment [Automated [employer] ge] The system which generated this result transmitted reference range: 10*3/?L. The reference range was not used to interpret this result as normal/abnormal. GRAN MAT (NEUT) % (test code = 770-8) 76.3 % IMM GRAN % (test code = 0205654798) 0.80 % LYMPH % (test code = 736-9) 15.0 % MONO % (test code = 5905-5) 6.8 % EOS % (test code = 713-8) 0.8 % BASO % (test code = 706-2) 0.3 % GRAN MAT x10^3(ANC) (test code = 7012800619) 7.82 10*3/uL 1.88-7.09 H IMM GRAN x10^3 (test code = 9421946402) 0.08 10*3/uL 0.00-0.06 H LYMPH x10^3 (test code = 731-0) 1.54 10*3/uL 1.32-3.29 MONO x10^3 (test code = 742-7) 0.70 10*3/uL 0.33-0.92 EOS x10^3 (test code = 711-2) 0.08 10*3/uL 0.03-0.39 BASO x10^3 (test code = 704-7) 0.03 10*3/uL 0.01-0.07 Lab Interpretation (test code = 60716-8) Abnormal [facility] - ONCE [id number] 02:21:00* Test Item Value Reference Range Interpretation Comme nts ABO & RH (test code = 20) A Positive IAT (test code = 1185) Negative [facility]ADC OR [facility] ONLY - [id number] 07:50:00* Test Item Value Reference Range Interpretation Comme nts RPR (Qualitative) (test code = 22338-7) Nonreactive Nonreactive Lab Interpretation (test cod e = 45966-7) Normal [facility] ONLY COVID [id number] 00:19:00COVID DMT InterpretationInterpretation/Recommendations: Molecular NAAT Tests for Active Infection with the SARS-CoV-2 Virus: This patient has tested negative on two occasions for the SARS-CoV-2 virusthat causes COVID-19 illness. This most likely indicates that the patient does not have an active infection with the SARS-CoV-2 virus, especially if these tests coincide with the patient's current presentation. However, infection is not completely ruled out as the false negative rate for molecular NAAT testing using a nasopharyngeal sample can be up to 30%, mostly dependent on the timing of sample collection in relation to illness onset and any deficiencies in sampling techniques. If the patient continues to have persistent or worsening symptoms concerning for COVID-19 illness, a repeat NAAT test (PCR, Rapid ID Now, etc.) should be performed, at which time the SARS-CoV-2 virus - if present - may have reached a detectable viral load (usually peaking by the end of the first week of symptoms). Tests for IgM and/or IgG Antibodies to SARS-CoV-2 Virus: This patient has tested negative for SARS-CoV-2 IgG antibodies. This could be because the patient has never been infected with the SARS-CoV-2 virus. However, if the patient continues to have symptoms suggestive of COVID-19 illness and/or molecular NAAT testing becomes positive, testing the patient for both IgM and IgG antibodies 3 weeks after symptom onset may be informative, as IgM and IgG antibodies can arise nearly simultaneously in the serum within 2-3 weeks after SARS-CoV-2 infection. At this time, it is unknown if the productionof IgG antibodies indicates immunity to the SARS-CoV-2 virus and for how long antibody production lasts. Of note, some patients do not develop detectable IgG or IgM antibodies following infection, and in these cases the absence of antibodies does not necessarily rule out previous infection. -------- Interpretation Result Comments:These interpretation comments are based upon all COVID-19 testing the patient has had at [facility], including molecular NAAT testing (more commonly known as PCR testing and Rapid ID Now testing) and antibody testing. It does not take into account any testing that a patient has had outside of the [facility] medical record. [facility] LABORATORY SERVICESCOVID DsyvtiyKMGP-PnR-7 Rapid ID NOW (no units) ? ? Date ? Value ? 05/25/2020 ? Not Detected ? ? ? 10/12/2019 ? Not Detected ? CoV-2 IgG (no units) ? ? Date ? Value ? 12/04/2019 ? Negative ? ? ? [facility] with [id number] 11:19:00* Test Item Value Reference Range Interpretation Comme nts WBC (test code = 6690-2) See_Comment H [Automated message] The system which generated this result transmitted reference range: 4.30 - 11.10 10*3/?L. The reference range was not used to interpret this result as normal/abnormal. RBC (test code = 789-8) See_Comment L [Automated message] The system which generated this result transmitted reference range: 3.93 - 5.25 10*6/?L. The reference range was not used to interpret this result as normal/abnormal. HGB (test code = 718-7) 7.7 g/dL 11.6-15 L HCT (test code = 4544-3) 26.8 % 35.7-45.2 L MCV (test code = 787-2) 77.7 fL 80.6-95.5 L MCH (test code = 785-6) 22.3 pg 25.9-32.8 L MCHC (test code = 786-4) 28.7 g/dL 31.6-35.1 L RDW-SD (test code = 45881-2) 52.4 fL 39-49.9 H RDW-CV (test code = 788-0) 19.0 % 12-15.5 H PLT (test code = 777-3) See_Comment [Automated message] The system which generated this result transmitted reference range: 166 - 358 10*3/?L. The reference range was not used to interpret this result as normal/abnormal. MPV (test code = 67089-0) 10.1 fL 9.5-12.9 NRBC/100 WBC (test code = 1089223916) See_Comment [Automated message] The system which generated this result transmitted reference range: 0.0 - 10.0 /100 WBCs. The reference range was not used to interpret this result as normal/abnormal. NRBC x10^3 (test code = 2010086830) See_Comment [Automated message] The system which generated this result transmitted reference range: 10*3/?L. The reference range was not used to interpret this result as normal/abnormal. GRAN MAT (NEUT) % (test code = 770-8) 84.7 % IMM GRAN % (test code = 7984384270) 2.10 % LYMPH % (test code = 736-9) 7.4 % MONO % (test code = 5905-5) 5.6 % EOS % (test code = 713-8) 0.1 % BASO % (test code = 706-2) 0.1 % GRAN MAT x10^3(ANC) (test code = 5365813057) 11.51 10*3/uL 1.88-7.09 H IMM GRAN x10^3 (test code = 8083345409) 0.29 10*3/uL 0-0.06 H LYMPH x10^3 (test code = 731-0) 1.01 10*3/uL 1.32-3.29 L MONO x10^3 (test code = 742-7) 0.76 10*3/uL 0.33-0.92 EOS x10^3 (test code = 711-2) <0.03 0.03-0.39 L BASO x10^3 (test code = 704-7) <0.03 0.01-0.07 Lab Interpretation (test code = 95331-0) Abnormal [facility] HospitalHepatitis B Surface Avntgie5130-11-88 02:31:00 * Test Item Value Reference Range Interpretation Comme nts HBsAg Semi-Quantitative (benji t code = 5195-3) Negative Negative [facility] HospitalRHO (D) IMMUNE [id number] 01:27:51* Test Item Value Reference Range Interpretation Comme nts RHIG CANDIDATE? (test code = 5055) No- see comment Patient is not a candidate for RhIg- Patient is Rh Positive.Performed at [facility] Laboratory Services - [facility] [address] [place] [phone] Free: [phone] No. [id number] [facility] HospitalHIV 1/2 AG-AB WITH [id number] 21:45:00* Test Item Value Reference Range Interpretation Comme nts HIV Semi-quantitative (test code = 93777-3) Negative Negative BEATRIZ (test code = BEATRIZ) Non-reactive for HIV-1 antigen and HIV-1/HIV-2 antibodies. ?No laboratory evidence of HIV infection. ?Repeat in 2-4 weeks if acute HIV infection is suspected. [facility] with Pcsfcboervry5254-29-30 20:58:00* Test Item Value Reference Range Interpretation Comme nts WBC (test code = 6690-2) See_Comment [Automated messa ge] The system which generated this result transmitted reference range: 4.30 - 11.10 10*3/?L. The reference range was not used to interpret this result as normal/abnormal. RBC (test code = 789-8) See_Comment L [Automated messa ge] The system which generated this result transmitted reference range: 3.93 - 5.25 10*6/?L. The reference range was not used to interpret this result as normal/abnormal. HGB (test code = 718-7) 8.3 g/dL 11.6-15 L HCT (test code = 4544-3) 27.8 % 35.7-45.2 L MCV (test code = 787-2) 76.0 fL 80.6-95.5 L MCH (test code = 785-6) 22.7 pg 25.9-32.8 L MCHC (test code = 786-4) 29.9 g/dL 31.6-35.1 L RDW-SD (test code = 86128-4) 50.9 fL 39-49.9 H RDW-CV (test code = 788-0) 19.0 % 12-15.5 H PLT (test code = 777-3) See_Comment [Automated messa ge] The system which generated this result transmitted reference range: 166 - 358 10*3/?L. The reference range was not used to interpret this result as normal/abnormal. MPV (test code = 11753-4) 10.1 fL 9.5-12.9 NRBC/100 WBC (test code = 4341172388) See_Comment [Automated [employer] ssage] The system which generated this result transmitted reference range: 0.0 - 10.0 /100 WBCs. The reference range was not used to interpret this result as normal/abnormal. NRBC x10^3 (test code = 1928090626) See_Comment [Automated messa ge] The system which generated this result transmitted reference range: 10*3/?L. The reference range was not used to interpret this result as normal/abnormal. SEG % (test code = 70094-5) 63 % 33-76 BAND % (test code = 91264-5) 3 % 0-1 H META % (test code = 21928-4) 4 % See_Comment H [Automated messa ge] The system which generated this result transmitted reference range: <=0. The reference range was not used to interpret this result as normal/abnormal. LYMPH % (test code = 12916-4) 20 % 14-54 MONO % (test code = 62870-0) 8 % 0-4 H EOS % (test code = 43351-8) 2 % 0-3 ANC (test code = 4568081162) 5.67 10*3/uL 1.88-7.09 Lab Interpretation (test code = 02457-6) Abnormal [facility] Cord [id number] 20:58:00* Test Item Value Reference Range Interpretation Comme nts VENOUS BASE EXCESS, CORD (test code = 5241084446) mEq/L VENOUS PH, CORD (test code = 1458674450) 7.25-7.45 VENOUS PC02, CORD (test code = 8688496255) See_Comment [Automated messa ge] The system which generated this result transmitted reference range: 27 - 49 mmHg. The reference range was not used to interpret this result as normal/abnormal. VENOUS PO2, CORD (test code = 0914466958) See_Comment [Automated me ssage] The system which generated this result transmitted reference range: 17 - 41 mmHg. The reference range was not used to interpret this result as normal/abnormal. VENOUS BICARBONATE, CORD (test code = 9784686533) See_Comment [Automated messa ge] The system which generated this result transmitted reference range: 12 - 29 mEq/L. The reference range was not used to interpret this result as normal/abnormal. [facility] HospitalArterial Cord [id number] 20:56:00* Test Item Value Reference Range Interpretation Comme nts BASE EXCESS, CORD (test code = 9352481080) mEq/L AC PH, CORD (BEAKER) (test code = 8592070902) 7.18-7.38 PC02, CORD (test code = 2703720591) See_Comment [Automated messa ge] The system which generated this result transmitted reference range: 32 - 66 mmHg. The reference range was not used to interpret this result as normal/abnormal. PO2, CORD (test code = 7105083228) See_Comment [Automated messa ge] The system which generated this result transmitted reference range: 10 - 30 mmHg. The reference range was not used to interpret this result as normal/abnormal. BICARBONATE, CORD (test code = 0914310498) See_Comment [Automated messa ge] The system which generated this result transmitted reference range: 17 - 27 mEq/L. The reference range was not used to interpret this result as normal/abnormal. [facility]Type [facility] Screen - ONCE [id number] 19:51:22 * Test Item Value Reference Range Interpretation Comme [facility] ABO & RH (test code = 20) A Positive Performed at [facility] Blood [address] [place] [address] Free: [phone] No. [id number] IAT (test code = 1185) Negative Performed at [facility] Blood [address] [place] [address] Free: [phone] No. [id number] [facility] HospitalCOVID-19 (ID NOW RAPID TESTING)2020-05-25 19:42:00* Test Item Value Reference Range Interpretation Comme [facility] SARS-CoV-2 Rapid ID NOW (test code = 16679-9) Not Detected Not Detected BEATRIZ (test code = BEATRIZ) ID NOW COVID-19 As say is an isothermal nucleic acid amplification test intended for the qualitative detection of nucleic acid from SARS-CoV-2 viral RNA in nasopharyngeal (SALES SUPPORT TECHNICIAN) specimens. It is used under Emergency Use Authorization (EUA) by FDA. The limit of detection (LOD) of the assay is 125 Genome Equivalents/mL. A positive result is indicative of the presence of SARS-CoV-2 RNA. ?Clinical correlation with patient history and other diagnostic information is necessary to determine patient infection status. A negative (Not Detected) result does not preclude SARS-CoV-2 infection. In patients with clinical symptoms and other tests that are consistent with SARS-CoV-2 infection, negative results should be treated as presumptive negative and a new specimen should be tested with alternative PCR molecular test. Invalid: Please collect a new specimen for repeat patient testing if clinically indicated. Lab Interpretation (test code = 25908-4) Normal [facility] URINALYSIS W SPECIFIC [id number] 21:26:00* Test Item Value Reference Range Interpretation Comme nts POCT U SP GRAV (test code = 3255) . 1.005-1.025 POCT PH U (test code = 3254) 7 mg/dl 5-8 POCT U LEUK EST (test code = 3263) 2+ Negative - Negative POCT U NIT (test code = 3262) Neg Negative - Negati ve POCT U PROT (test code = 3259) Trace Negative - Negat daljit POCT U GLU (test code = 3256) 1+ Negative - Negati ve POCT U KETONE (test code = 3258) None Negative - Neg ative POCT U UROBILI (test code = 3260) . 0.2-1 POCT U BILI (test code = 3261) . Negative - Negat daljit POCT U BLD (test code = 3257) Neg Negative - Negati ve POCT U COLOR (test code = 3266) POCT U APPEAR (test code = 3267) [facility] URINALYSIS W SPECIFIC [id number] 21:26:00* Test Item Value Reference Range Interpretation Comme nts POCT U SP GRAV (test code = 3255) . 1.005-1.025 POCT PH U (test code = 3254) 7 mg/dl 5-8 POCT U LEUK EST (test code = 3263) 2+ Negative - Negative POCT U NIT (test code = 3262) Neg Negative - Negati ve POCT U PROT (test code = 3259) Trace Negative - Negat daljit POCT U GLU (test code = 3256) 1+ Negative - Negati ve POCT U KETONE (test code = 3258) None Negative - Neg ative POCT U UROBILI (test code = 3260) . 0.2-1 POCT U BILI (test code = 3261) . Negative - Negat daljit POCT U BLD (test code = 3257) Neg Negative - Negati ve POCT U COLOR (test code = 3266) POCT U APPEAR (test code = 3267) [facility] URINALYSIS W SPECIFIC [id number] 21:26:00* Test Item Value Reference Range Interpretation Comme nts POCT U SP GRAV (test code = 3255) . 1.005-1.025 POCT PH U (test code = 3254) 7 mg/dl 5-8 POCT U LEUK EST (test code = 3263) 2+ Negative - Negative POCT U NIT (test code = 3262) Neg Negative - Negati ve POCT U PROT (test code = 3259) Trace Negative - Negat daljit POCT U GLU (test code = 3256) 1+ Negative - Negati ve POCT U KETONE (test code = 3258) None Negative - Neg ative POCT U UROBILI (test code = 3260) . 0.2-1 POCT U BILI (test code = 3261) . Negative - Negat daljit POCT U BLD (test code = 3257) Neg Negative - Negati ve POCT U COLOR (test code = 3266) POCT U APPEAR (test code = 3267) [facility] URINALYSIS W SPECIFIC [id number] 20:10:00* Test Item Value Reference Range Interpretation Comme nts POCT U SP GRAV (test code = 3255) . 1.005-1.025 POCT PH U (test code = 3254) 7 mg/dl 5-8 POCT U LEUK EST (test code = 3263) 1+ Negative - Negative POCT U NIT (test code = 3262) Neg Negative - Negati ve POCT U PROT (test code = 3259) Trace Negative - Negat daljit POCT U GLU (test code = 3256) 1+ Negative - Negati ve POCT U KETONE (test code = 3258) None Negative - Neg ative POCT U UROBILI (test code = 3260) . 0.2-1 POCT U BILI (test code = 3261) . Negative - Negat daljit POCT U BLD (test code = 3257) . Negative - Negati ve POCT U COLOR (test code = 3266) POCT U APPEAR (test code = 3267) [facility] URINALYSIS W SPECIFIC [id number] 19:09:00* Test Item Value Reference Range Interpretation Comme nts POCT U SP GRAV (test code = 3255) . 1.005-1.025 POCT PH U (test code = 3254) . 5-8 POCT U LEUK EST (test code = 3263) . Negative - N egative POCT U NIT (test code = 3262) . Negative - Negati ve POCT U PROT (test code = 3259) 1+ Negative - Negat daljit POCT U GLU (test code = 3256) 2+ Negative - Negati ve POCT U KETONE (test code = 3258) . Negative - Neg ative POCT U UROBILI (test code = 3260) . 0.2-1 POCT U BILI (test code = 3261) . Negative - Negat daljit POCT U BLD (test code = 3257) . Negative - Negati ve POCT U COLOR (test code = 3266) POCT U APPEAR (test code = 3267) [facility] [facility] URINALYSIS W SPECIFIC [id number] 20:11:00* Test Item Value Reference Range Interpretation Comme nts POCT U SP GRAV (test code = 3255) . 1.005-1.025 POCT PH U (test code = 3254) . 5-8 POCT U LEUK EST (test code = 3263) . Negative - N egative POCT U NIT (test code = 3262) . Negative - Negati ve POCT U PROT (test code = 3259) Trace Negative - Negat daljit POCT U GLU (test code = 3256) 1+ Negative - Negati ve POCT U KETONE (test code = 3258) . Negative - Neg ative POCT U UROBILI (test code = 3260) . 0.2-1 POCT U BILI (test code = 3261) . Negative - Negat daljit POCT U BLD (test code = 3257) . Negative - Negati ve POCT U COLOR (test code = 3266) POCT U APPEAR (test code = 3267) [facility] URINALYSIS W SPECIFIC [id number] 20:30:00* Test Item Value Reference Range Interpretation Comme nts POCT U SP GRAV (test code = 3255) . 1.005-1.025 POCT PH U (test code = 3254) . 5-8 POCT U LEUK EST (test code = 3263) . Negative - N egative POCT U NIT (test code = 3262) . Negative - Negati ve POCT U PROT (test code = 3259) trace Negative - Negat daljit POCT U GLU (test code = 3256) 2+ Negative - Negati ve POCT U KETONE (test code = 3258) . Negative - Neg ative POCT U UROBILI (test code = 3260) . 0.2-1 POCT U BILI (test code = 3261) . Negative - Negat daljit POCT U BLD (test code = 3257) . Negative - Negati ve POCT U COLOR (test code = 3266) POCT U APPEAR (test code = 3267) [facility] URINALYSIS W SPECIFIC [id number] 20:30:00* Test Item Value Reference Range Interpretation Comme nts POCT U SP GRAV (test code = 3255) . 1.005-1.025 POCT PH U (test code = 3254) . 5-8 POCT U LEUK EST (test code = 3263) . Negative - N egative POCT U NIT (test code = 3262) . Negative - Negati ve POCT U PROT (test code = 3259) trace Negative - Negat daljit POCT U GLU (test code = 3256) 2+ Negative - Negati ve POCT U KETONE (test code = 3258) . Negative - Neg ative POCT U UROBILI (test code = 3260) . 0.2-1 POCT U BILI (test code = 3261) . Negative - Negat daljit POCT U BLD (test code = 3257) . Negative - Negati ve POCT U COLOR (test code = 3266) POCT U APPEAR (test code = 3267) [facility] URINALYSIS W SPECIFIC [id number] 19:27:00* Test Item Value Reference Range Interpretation Comme nts POCT U SP GRAV (test code = 3255) . 1.005-1.025 POCT PH U (test code = 3254) . 5-8 POCT U LEUK EST (test code = 3263) . Negative - Negative POCT U NIT (test code = 3262) . Negative - Negati ve POCT U PROT (test code = 3259) trace Negative - Negat daljit POCT U GLU (test code = 3256) neg Negative - Negati ve POCT U KETONE (test code = 3258) . Negative - Neg ative POCT U UROBILI (test code = 3260) . 0.2-1 POCT U BILI (test code = 3261) . Negative - Negat daljit POCT U BLD (test code = 3257) . Negative - Negati ve POCT U COLOR (test code = 3266) POCT U APPEAR (test code = 3267) Lab Interpretation (test cod e = 27183-3) [facility] [id number] 15:33:00* Test Item Value Reference Range Interpretation Comme [facility] VZV IgG antibody (test code = 36968-8) Negative Negative BEATRIZ (test code = BEATRIZ) Positive - Indicat es the patient was exposed to VZV through infection or vaccination.Negative - Indicates the patient could be susceptible to VZV infection.Equivocal - A second specimen should be sent for testing. [facility] HospitalRUBELLA SCREEN ([facility]ACE) [id number] 15:32:00 * Test Item Value Reference Range Interpretation Comme [facility] Rubella screen IgG (test code = 1907271939) Positive Negative BEATRIZ (test code = BEATRIZ) Positive - Indicat es the patient was exposed to Rubella through infection or vaccination.Negative - Indicates the patient could be susceptible to Rubella infection.Equivocal - A second specimen should be sent. [facility] HospitalGALV ONLY - SYPHILIS [id number] 14:33:00* Test Item Value Reference Range Interpretation Comme [facility] Syphilis IgG/IgM (test code = 24454-7) Non-reactive Non-reactive BEATRIZ (test code = BEATRIZ) Non-reactive - No serologic evidence of T. pallidum infection. Cannot exclude incubating or early syphilis. Submit a second specimen in 2-4 weeks if syphilis is clinically suspected. Equivocal - Further testing to follow. Reactive - Further testing to follow. Lab Interpretation (test code = 34802-3) Normal [facility] HospitalHIV 1/2 AG-AB WITH [id number] 07:46:00* Test Item Value Reference Range Interpretation Comme nts HIV Semi-quantitative (test code = 58216-5) Negative Negative BEATRIZ (test code = BEATRIZ) Non-reactive for HIV-1 antigen and HIV-1/HIV-2 antibodies. ?No laboratory evidence of HIV infection. ?Repeat in 2-4 weeks if acute HIV infection is suspected. [facility] HospitalPRENATAL WORKUP, BLOOD [id number] 05:07:40 * Test Item Value Reference Range Interpretation Comme nts ABO & RH (test code = 20) A POSITIVE Performed at [facility] Laboratory [facility] Blood [address] [address]Haof Free: [phone] No. [id number] IAT (test code = 1185) Negative Performed at [facility] Laboratory [facility] Blood [place] [address]Toll Free: [phone] No. [id number] [facility] HospitalSARS-COV-2 [id number] 04:08:00* Test Item Value Reference Range Interpretation Comme nts CoV-2 IgG (test code = 76929-3) Negative Negative Negative result does not rule out acute SARS-CoV-2 infection. Clinical correlation as well as molecular diagnostic test are recommended to rule out acute infection if clinically indicated. BEATRIZ (test code = BEATRIZ) This test has been approved by FDA for emergency use. Lab Interpretation (test code = 41078-8) Normal [facility] HospitalHEPATITIS B SURFACE [id number] 03:42:00 * Test Item Value Reference Range Interpretation Comme nts HBsAg Semi-Quantitative (benji t code = 5195-3) Negative Negative [facility] HospitalGLUCOSE 1 HOUR POST [id number] 03:13:00* Test Item Value Reference Range Interpretation Comme nts GLUC 1 HR (test code = 6576902461) 104 mg/dL 120-170 L Lab Interpretation (test cod e = 41711-9) Abnormal [facility] HospitalCBC WITH [id number] 02:52:00* Test Item Value Reference Range Interpretation Comme nts WBC (test code = 6690-2) See_Comment [Automated messa ge] The system which generated this result transmitted reference range: 4.30 - 11.10 10*3/?L. The reference range was not used to interpret this result as normal/abnormal. RBC (test code = 789-8) See_Comment [Automated messa ge] The system which generated this result transmitted reference range: 3.93 - 5.25 10*6/?L. The reference range was not used to interpret this result as normal/abnormal. HGB (test code = 718-7) 11.4 g/dL 11.6-15 L HCT (test code = 4544-3) 35.3 % 35.7-45.2 L MCV (test code = 787-2) 84.7 fL 80.6-95.5 MCH (test code = 785-6) 27.3 pg 25.9-32.8 MCHC (test code = 786-4) 32.3 g/dL 31.6-35.1 RDW-SD (test code = 83229-7) 43.3 fL 39-49.9 RDW-CV (test code = 788-0) 14.0 % 12-15.5 PLT (test code = 777-3) See_Comment [Automated [employer] ge] The system which generated this result transmitted reference range: 166 - 358 10*3/?L. The reference range was not used to interpret this result as normal/abnormal. MPV (test code = 44978-1) 11.1 fL 9.5-12.9 NRBC/100 WBC (test code = 6253235439) See_Comment [Automated [employer] ssage] The system which generated this result transmitted reference range: 0.0 - 10.0 /100 WBCs. The reference range was not used to interpret this result as normal/abnormal. NRBC x10^3 (test code = 7950840313) <0.01 See_Comment [Automated messa ge] The system which generated this result transmitted reference range: 10*3/?L. The reference range was not used to interpret this result as normal/abnormal. GRAN MAT (NEUT) % (test code = 770-8) 68.4 % IMM GRAN % (test code = 4915723162) 0.30 % LYMPH % (test code = 736-9) 24.6 % MONO % (test code = 5905-5) 5.9 % EOS % (test code = 713-8) 0.7 % BASO % (test code = 706-2) 0.1 % GRAN MAT x10^3(ANC) (test code = 3813846241) 4.84 10*3/uL 1.88-7.09 IMM GRAN x10^3 (test code = 6719486023) <0.03 0-0.06 LYMPH x10^3 (test code = 731-0) 1.74 10*3/uL 1.32-3.29 MONO x10^3 (test code = 742-7) 0.42 10*3/uL 0.33-0.92 EOS x10^3 (test code = 711-2) 0.05 10*3/uL 0.03-0.39 BASO x10^3 (test code = 704-7) <0.03 0.01-0.07 Lab Interpretation (test code = 11561-1) Abnormal [facility] HospitalPOME [facility]INALYS[facility] W/O SPECIFIC [id number] 13:37:00* Test Item Value Reference Range Interpretation Comme nts POCT PH U (test code = 3254) 6 mg/dl 5-8 POCT U LEUK EST (test code = 3263) 2+ Negative - Negative POCT U NIT (test code = 3262) Pos Negative - Negati ve POCT U PROT (test code = 3259) Trace Negative - Negat daljit POCT U GLU (test code = 3256) Neg Negative - Negati ve POCT U KETONE (test code = 3258) None Negative - Neg ative POCT U BLD (test code = 3257) Neg Negative - Negati ve [facility] HospitalPOCT [id number] 13:33:00* Test Item Value Reference Range Interpretation Comme nts POCT PREG (test code = 1605) Positive On board controls acceptable with C Line (test code = 3574) Yes POCT PREG LOT # (test code = 3575) POCT PREG TEST DATE ( test code = 3576) [facility] HospitalComplete Metabolic [id number] 09:40:00* Test Item Value Reference Range Interpretation Comme nts NA (test code = 7215094007) 139 mmol/L 135-145 K (test code = 4973972034) 4.1 mmol/L 3.5-5 CL (test code = 1796750824) 101 mmol/L 98-108 CO2 TOTAL (test code = 1418287020) 29 mmol/L 23-31 AGAP (test code = 6449083423) 2-16 BUN (test code = 6223950416) 15 mg/dL 7-23 GLUCOSE (test code = 0166426166) 121 mg/dL 70-110 H CREATININE (test code = 1735523606) 0.68 mg/dL 0.5-1.04 TOTAL BILI (test code = 1870064034) <0.1 0.1-1.1 L CALCIUM (test code = 6039933467) 9.5 mg/dL 8.6-10.6 T PROTEIN (test code = 2449307834) 7.5 g/dL 6.3-8.2 ALBUMIN (test code = 7448995551) 4.3 g/dL 3.5-5 ALK PHOS (test code = 1204060801) 96 U/L 34-122 ALTv (test code = 1742-6) 18 U/L 5-35 AST(SGOT) (test code = 4615234690) 17 U/L 13-40 eGFR Calculation (Non-) (test code = 9873928068) mL/min/1.73m2 eGFR Calculation () (test code = 4731481831) mL/min/1.73m2 BEATRIZ (test code = BEATRIZ) Association of Glomerular Filtration Rate (GFR) and Staging of Kidney Disease* + --+ --+ ------+| GFR (mL/min/1.73 m2) ?| With Kidney Damage ?| ?Without Kidney Damage+ --------+ --------+ +| ?>90 ?| ?Stage one ?| ? Normal ?+ ---+ ---+ -------+| ?60-89 ?| ?Stage two ?| ? Decreased GFR ? + --+ --+ ------+| ?30-59 ?| ?Stage three ?| ? Stage three ? + --+ --+ ------+| ?15-29 ?| ?Stage four ? | ? Stage four ?+ ---+ ---+ -------+| ?<15 (or dialysis) ? ?| ?Stage five ? | ? Stage five ?+ ---+ ---+ -------+ *Each stage assumes the associated GFR level has been in effect for at least three months. ?Stages 1 to 5, with or without kidney disease, indicate chronic kidney disease. Notes: Determination of stages one and two (with eGFR >59mL/min/1.73 m2) requires estimation of kidney damage for at least three months as defined by structural or functional abnormalities of the kidney, manifested by either:Pathological abnormalities or Markers of kidney damage (including abnormalities in the composition of the blood or urine or abnormalities in imaging tests). Lab Interpretation (test code = 25223-1) Abnormal [facility] HospitalLipase, [id number] 09:36:00* Test Item Value Reference Range Interpretation Comme nts LIPASE (test code = 6998572212) 79 U/L 0-220 Lab Interpretation (test cod e = 97034-6) Normal [facility] HospitalUrinalysis2020-05-14 09:32:00* Test Item Value Reference Range Interpretation Comme nts APPEARANCE (test code = 5234387584) Clear Clear COLOR (test code = 2368118968) Yellow Yellow PH (test code = 8485786704) 4.8-8.0 SP GRAVITY (test code = 1170236452) 1.003-1.030 GLU U QUAL (test code = 6700016060) Negative Negative BLOOD (test code = 4268574055) Negative Negative KETONES (test code = 5147803315) Negative Negative PROTEIN (test code = 2887-8) Negative Negative UROBILIN (test code = 2682648867) 0.2 mg/dL See_Comment [Automated [employer]] The system which generated this result transmitted reference range: 0-1.0 mg/dL. The reference range was not used to interpret this result as normal/abnormal. BILIRUBIN (test code = 6048941773) Negative Negative NITRITE (test code = 9087716562) Negative Negative LEUK BIN (test code = 2364938040) Negative Negative RBC/HPF (test code = 8184000829) See_Comment [Automated [employer]] The system which generated this result transmitted reference range: 0 - 3 HPF. The reference range was not used to interpret this result as normal/abnormal. WBC/HPF (test code = 6658027052) See_Comment [Automated messa ge] The system which generated this result transmitted reference range: 0 - 5 HPF. The reference range was not used to interpret this result as normal/abnormal. BACTERIA (test code = 0707190506) Few Negative A AMORPHOUS (test code = 8341828369) Few Rare HPF A SQ EPITH (test code = 4369959984) HPF Lab Interpretation (test code = 51776-3) Abnormal [facility] WITH [id number] 09:22:00* Test Item Value Reference Range Interpretation Comme nts WBC (test code = 6690-2) See_Comment [Automated messa ge] The system which generated this result transmitted reference range: 4.30 - 11.10 10*3/?L. The reference range was not used to interpret this result as normal/abnormal. RBC (test code = 789-8) See_Comment [Automated messa ge] The system which generated this result transmitted reference range: 3.93 - 5.25 10*6/?L. The reference range was not used to interpret this result as normal/abnormal. HGB (test code = 718-7) 12.4 g/dL 11.6-15 HCT (test code = 4544-3) 38.6 % 35.7-45.2 MCV (test code = 787-2) 81.6 fL 80.6-95.5 MCH (test code = 785-6) 26.2 pg 25.9-32.8 MCHC (test code = 786-4) 32.1 g/dL 31.6-35.1 RDW-SD (test code = 43028-2) 44.0 fL 39-49.9 RDW-CV (test code = 788-0) 15.1 % 12-15.5 PLT (test code = 777-3) See_Comment H [Automated messa ge] The system which generated this result transmitted reference range: 166 - 358 10*3/?L. The reference range was not used to interpret this result as normal/abnormal. MPV (test code = 84041-5) 9.9 fL 9.5-12.9 NRBC/100 WBC (test code = 1483507612) See_Comment [Automated me ssage] The system which generated this result transmitted reference range: 0.0 - 10.0 /100 WBCs. The reference range was not used to interpret this result as normal/abnormal. NRBC x10^3 (test code = 3744326215) <0.01 See_Comment [Automated messa ge] The system which generated this result transmitted reference range: 10*3/?L. The reference range was not used to interpret this result as normal/abnormal. GRAN MAT (NEUT) % (test code = 770-8) 52.5 % IMM GRAN % (test code = 4734701746) 0.50 % LYMPH % (test code = 736-9) 35.1 % MONO % (test code = 5905-5) 8.3 % EOS % (test code = 713-8) 3.1 % BASO % (test code = 706-2) 0.5 % GRAN MAT x10^3(ANC) (test code = 6329540007) 5.00 10*3/uL 1.88-7.09 IMM GRAN x10^3 (test code = 2678028193) 0.05 10*3/uL 0-0.06 LYMPH x10^3 (test code = 731-0) 3.35 10*3/uL 1.32-3.29 H MONO x10^3 (test code = 742-7) 0.79 10*3/uL 0.33-0.92 EOS x10^3 (test code = 711-2) 0.30 10*3/uL 0.03-0.39 BASO x10^3 (test code = 704-7) 0.05 10*3/uL 0.01-0.07 Lab Interpretation (test code = 79609-9) Abnormal [facility] Wgsa7452-30-69 09:10:00* Test Item Value Reference Range Interpretation Comme nts POCT PREG (test code = 1605) negative On board controls acceptable with C Line (test code = 3574) yes POCT PREG LOT # (test code = 3575) [id number] POCT PREG TEST DATE ( test code = 3576) 12/20/2020 Lab Interpretation (test cod e = 36142-4) Normal [facility] HospitalUrinalysis2020-05-[facility] 15:48:00* Test Item Value Reference Range Interpretation Comme nts APPEARANCE (test code = 8898990545) Hazy Clear A COLOR (test code = 7596878661) Yellow Yellow PH (test code = 1777420947) 4.8-8.0 SP GRAVITY (test code = 1382064814) 1.003-1.030 GLU U QUAL (test code = 3894547040) Normal Normal BLOOD (test code = 5217657976) 2+ Negative A KETONES (test code = 8200747327) Negative Negative PROTEIN (test code = 2887-8) Negative Negative UROBILIN (test code = 8333910478) Normal Normal BILIRUBIN (test code = 4096466824) Negative Negative NITRITE (test code = 2030341172) Negative Negative LEUK BIN (test code = 6430652262) Negative Negative RBC/HPF (test code = 2832750535) See_Comment H [Automated [employer] ge] The system which generated this result transmitted reference range: 0 - 3 HPF. The reference range was not used to interpret this result as normal/abnormal. WBC/HPF (test code = 9976962896) See_Comment [Automated [employer] ge] The system which generated this result transmitted reference range: 0 - 5 HPF. The reference range was not used to interpret this result as normal/abnormal. BACTERIA (test code = 4559243274) Negative Negative MUCOUS (test code = 2008417176) Slight Negative LPF A SQ EPITH (test code = 6907994425) HPF Lab Interpretation (test code = 71062-0) Abnormal [facility]Complete Metabolic Wnijk9552-42-14 15:46:00* Test Item Value Reference Range Interpretation Comme nts NA (test code = 6128842731) 139 mmol/L 135-145 K (test code = 4201683773) 4.1 mmol/L 3.5-5 CL (test code = 6577143319) 106 mmol/L 98-108 CO2 TOTAL (test code = 8572729685) 24 mmol/L 23-31 AGAP (test code = 5248045162) 2-16 BUN (test code = 8099395430) 13 mg/dL 7-23 GLUCOSE (test code = 4882020560) 113 mg/dL 70-110 H CREATININE (test code = 3410891550) 0.58 mg/dL 0.5-1.04 TOTAL BILI (test code = 0251810243) 0.2 mg/dL 0.1-1.1 CALCIUM (test code = 7997937113) 8.9 mg/dL 8.6-10.6 T PROTEIN (test code = 2273252268) 7.2 g/dL 6.3-8.2 ALBUMIN (test code = 8015866223) 4.2 g/dL 3.5-5 ALK PHOS (test code = 8595270624) 103 U/L 34-122 ALTv (test code = 1742-6) 23 U/L 5-35 AST(SGOT) (test code = 5181116824) 21 U/L 13-40 eGFR Calculation (Non-) (test code = 9029488536) mL/min/1.73m2 eGFR Calculation () (test code = 0787971293) mL/min/1.73m2 BEATRIZ (test code = BEATRIZ) Association of Glomerular Filtration Rate (GFR) and Staging of Kidney Disease* + --+ --+ ------+| GFR (mL/min/1.73 m2) ?| With Kidney Damage ?| ?Without Kidney Damage+ --------+ --------+ +| ?>90 ?| ?Stage one ?| ? Normal ?+ ---+ ---+ -------+| ?60-89 ?| ?Stage two ?| ? Decreased GFR ? + --+ --+ ------+| ?30-59 ?| ?Stage three ?| ? Stage three ? + --+ --+ ------+| ?15-29 ?| ?Stage four ? | ? Stage four ?+ ---+ ---+ -------+| ?<15 (or dialysis) ? ?| ?Stage five ? | ? Stage five ?+ ---+ ---+ -------+ *Each stage assumes the associated GFR level has been in effect for at least three months. ?Stages 1 to 5, with or without kidney disease, indicate chronic kidney disease. Notes: Determination of stages one and two (with eGFR >59mL/min/1.73 m2) requires estimation of kidney damage for at least three months as defined by structural or functional abnormalities of the kidney, manifested by either:Pathological abnormalities or Markers of kidney damage (including abnormalities in the composition of the blood or urine or abnormalities in imaging tests). Lab Interpretation (test code = 89805-7) Abnormal [facility] HospitalLipase, [id number] 15:46:00* Test Item Value Reference Range Interpretation Comme nts LIPASE (test code = 1485994055) 61 U/L 0-220 Lab Interpretation (test cod e = 00559-8) Normal [facility] HospitalCBC WITH [id number] 15:39:00* Test Item Value Reference Range Interpretation Comme nts WBC (test code = 6690-2) See_Comment [Automated [employer]] The system which generated this result transmitted reference range: 4.30 - 11.10 10*3/?L. The reference range was not used to interpret this result as normal/abnormal. RBC (test code = 789-8) See_Comment [Automated [employer]] The system which generated this result transmitted reference range: 3.93 - 5.25 10*6/?L. The reference range was not used to interpret this result as normal/abnormal. HGB (test code = 718-7) 11.8 g/dL 11.6-15 HCT (test code = 4544-3) 36.7 % 35.7-45.2 MCV (test code = 787-2) 81.6 fL 80.6-95.5 MCH (test code = 785-6) 26.2 pg 25.9-32.8 MCHC (test code = 786-4) 32.2 g/dL 31.6-35.1 RDW-SD (test code = 53727-7) 44.5 fL 39-49.9 RDW-CV (test code = 788-0) 15.0 % 12-15.5 PLT (test code = 777-3) See_Comment H [Automated [employer]] The system which generated this result transmitted reference range: 166 - 358 10*3/?L. The reference range was not used to interpret this result as normal/abnormal. MPV (test code = 37607-3) 9.9 fL 9.5-12.9 NRBC/100 WBC (test code = 5067916678) See_Comment [Automated me ssage] The system which generated this result transmitted reference range: 0.0 - 10.0 /100 WBCs. The reference range was not used to interpret this result as normal/abnormal. NRBC x10^3 (test code = 2903060612) <0.01 See_Comment [Automated messa ge] The system which generated this result transmitted reference range: 10*3/?L. The reference range was not used to interpret this result as normal/abnormal. GRAN MAT (NEUT) % (test code = 770-8) 65.1 % IMM GRAN % (test code = 5750930620) 0.60 % LYMPH % (test code = 736-9) 25.4 % MONO % (test code = 5905-5) 6.4 % EOS % (test code = 713-8) 2.2 % BASO % (test code = 706-2) 0.3 % GRAN MAT x10^3(ANC) (test code = 5973644395) 5.60 10*3/uL 1.88-7.09 IMM GRAN x10^3 (test code = 4371424269) 0.05 10*3/uL 0-0.06 LYMPH x10^3 (test code = 731-0) 2.19 10*3/uL 1.32-3.29 MONO x10^3 (test code = 742-7) 0.55 10*3/uL 0.33-0.92 EOS x10^3 (test code = 711-2) 0.19 10*3/uL 0.03-0.39 BASO x10^3 (test code = 704-7) 0.03 10*3/uL 0.01-0.07 Lab Interpretation (test code = 33184-8) [facility]normal [facility]PO[facility] [id number] 15:21:00* Test Item Value Reference Range Interpretation Comme nts POCT PREG (test code = 1605) negative On board controls acceptable with C Line (test code = 3574) present Lab Interpretation (test cod e = 98332-0) Normal [facility] HospitalCB W/AUTO [id number] 07:50:00* Test Item Value Reference Range Interpretation Comme nts WHITE BLOOD CELL (test code = WBC) 12.9 K/mm3 6.6-12.1 H RED BLOOD CELL (test code = RBC) 3.00 M/mm3 3.45-5.01 L HEMOGLOBIN (test code = HGB) 8.0 g/dL 10.7-13.9 L HEMATOCRIT (test code = HCT) 25.4 % 32.1-42.1 L MEAN CELL VOLUME (test code = MCV) 85 fL 84.1-94.8 N MEAN CELL HGB (test code = MCH) 26.7 pg 27-35 L MEAN CELL HGB CONCETRATION ( test code = MCHC) 31.5 gm/dL 32.2-34.1 L RED CELL DISTRIBUTION WIDTH (test code = RDW) 14.6 % 12.4-16.5 N PLATELET COUNT (test code = PLT) 248 K/mm3 133-385 N IMMATURE PLATELET FRACTION ( test code = IPF) 0.0 % 0.0-10.8 N MEAN PLATELET VOLUME (test c ode = MPV) 10.0 fl 9.1-12.7 N NEUTROPHIL % (test code = NT%) 71.5 % 56.5-79.4 N LYMPHOCYTE % (test code = LY%) 17.9 % 14.3-34.3 N MONOCYTE % (test code = MO%) 8.3 % 5.1-10.4 N EOSINOPHIL % (test code = EO%) 0.2 % 0.1-3.0 N BASOPHIL % (test code = BA%) 0.2 % 0.1-1.0 N NEUTROPHIL # (test code = NT#) 9.3 K/mm3 LYMPHOCYTE # (test code = LY#) 2.3 K/mm3 MONOCYTE # (test code = MO#) 1.1 K/mm3 EOSINOPHIL # (test code = EO#) 0.02 K/mm3 BASOPHIL # (test code = BA#) 0.0 K/mm3 RBC MORPHOLOGY REQUIRED (benji t code = RBCM) NORMAL NORMAL PLATELET MORPHOLOGY REQUIRED (test code = PLTMR) NORMAL NORMAL HGB [id number] 12:04:00* Test Item Value Reference Range Interpretation Comme nts HEMOGLOBIN (test code = HGB) 9.0 g/dL 10.7-13.9 L HEMATOCRIT (test code = HCT) 28.1 % 32.1-42.1 L CBC W/AUTO [id number] 06:49:00* Test Item Value Reference Range Interpretation Comme nts WHITE BLOOD CELL (test code = WBC) 9.6 K/mm3 6.6-12.1 N RED BLOOD CELL (test code = RBC) 3.83 M/mm3 3.45-5.01 N HEMOGLOBIN (test code = HGB) 10.2 g/dL 10.7-13.9 L HEMATOCRIT (test code = HCT) 32.3 % 32.1-42.1 N MEAN CELL VOLUME (test code = MCV) 84 fL 84.1-94.8 L MEAN CELL HGB (test code = MCH) 26.6 pg 27-35 L MEAN CELL HGB CONCETRATION ( test code = MCHC) 31.6 gm/dL 32.2-34.1 L RED CELL DISTRIBUTION WIDTH (test code = RDW) 14.7 % 12.4-16.5 N PLATELET COUNT (test code = PLT) 282 K/mm3 133-385 N IMMATURE PLATELET FRACTION ( test code = IPF) 0.0 % 0.0-10.8 N MEAN PLATELET VOLUME (test c ode = MPV) 10.1 fl 9.1-12.7 N NEUTROPHIL % (test code = NT%) 62.1 % 56.5-79.4 N LYMPHOCYTE % (test code = LY%) 25.1 % 14.3-34.3 N MONOCYTE % (test code = MO%) 8.7 % 5.1-10.4 N EOSINOPHIL % (test code = EO%) 1.0 % 0.1-3.0 N BASOPHIL % (test code = BA%) 0.5 % 0.1-1.0 N NEUTROPHIL # (test code = NT#) 6.0 K/mm3 LYMPHOCYTE # (test code = LY#) 2.4 K/mm3 MONOCYTE # (test code = MO#) 0.8 K/mm3 EOSINOPHIL # (test code = EO#) 0.10 K/mm3 BASOPHIL # (test code = BA#) 0.1 K/mm3 RBC MORPHOLOGY REQUIRED (benji t code = RBCM) NORMAL NORMAL PLATELET MORPHOLOGY REQUIRED (test code = PLTMR) NORMAL NORMAL AG HEPATITIS B [id number] 21:00:00* Test Item Value Reference Range Interpretation Comme nts AG HEPATITIS B SURFACE (test code = HBSAG) NONREACTIVE NONREACTIVE IS CONSENT FORM SIGNED FOR HIV TESTING? YAB HEPATITIS C [id number] 21:00:00* Test Item Value Reference Range Interpretation Comme nts AB HEPATITIS C (test code = HCVAB) NONREACTIVE NONREACTIVE SIGNAL TO CUTOFF (test code = CUTOFF) 0.08 <0.80 N IS CONSENT FORM SIGNED FOR HIV TESTING? YAB [id number] 21:00:00* Test Item Value Reference Range Interpretation Comme nts AB TREPONEMA (test code = TREPAB) NONREACTIVE NONREACTIVE IS CONSENT FORM SIGNED FOR HIV TESTING? YAB HIV 1 21:00:00* Test Item Value Reference Range Interpretation Comme nts AB HIV 1 2 (test code = PWQ44IZ) NONREACTIVE NONREACTIVE Done by [employer] HIV Ag/Ab Combo Screen IS CONSENT FORM SIGNED FOR HIV TESTING? YURINALYSIS W/O [id number] 17:41:00 * Test Item Value Reference Range Interpretation Comme nts UA GLUCOSE DIPSTICK (test co de = DGLUU) TRACE NEGATIVE A UA KETONE DIPSTICK (test cod e = KETU) NEGATIVE NEGATIVE UA PROTEIN DIPSTICK (test co de = PROU) NEGATIVE NEGATIVE Specimen Comment: GLUCOSE/PROTEINIS NURSE PERFORMING TEST? NCBC W/AUTO DIFF 2019-04-09 17:30:00* Test Item Value Reference Range Interpretation Comme nts WHITE BLOOD CELL (test code = WBC) 10.5 K/mm3 6.6-12.1 N RED BLOOD CELL (test code = RBC) 3.76 M/mm3 3.45-5.01 N HEMOGLOBIN (test code = HGB) 10.0 g/dL 10.7-13.9 L HEMATOCRIT (test code = HCT) 33.0 % 32.1-42.1 N MEAN CELL VOLUME (test code = MCV) 88 fL 84.1-94.8 N MEAN CELL HGB (test code = MCH) 26.6 pg 27-35 L MEAN CELL HGB CONCETRATION ( test code = MCHC) 30.3 gm/dL 32.2-34.1 L RED CELL DISTRIBUTION WIDTH (test code = RDW) 14.7 % 12.4-16.5 N PLATELET COUNT (test code = PLT) 271 K/mm3 133-385 N IMMATURE PLATELET FRACTION ( test code = IPF) 0.0 % 0.0-10.8 N MEAN PLATELET VOLUME (test c ode = MPV) 10.3 fl 9.1-12.7 N NEUTROPHIL % (test code = NT%) 72.9 % 56.5-79.4 N LYMPHOCYTE % (test code = LY%) 16.8 % 14.3-34.3 N MONOCYTE % (test code = MO%) 7.8 % 5.1-10.4 N EOSINOPHIL % (test code = EO%) 0.4 % 0.1-3.0 N BASOPHIL % (test code = BA%) 0.3 % 0.1-1.0 N NEUTROPHIL # (test code = NT#) 7.7 K/mm3 LYMPHOCYTE # (test code = LY#) 1.8 K/mm3 MONOCYTE # (test code = MO#) 0.8 K/mm3 EOSINOPHIL # (test code = EO#) 0.04 K/mm3 BASOPHIL # (test code = BA#) 0.0 K/mm3 RBC MORPHOLOGY REQUIRED (benji t code = RBCM) NORMAL NORMAL PLATELET MORPHOLOGY REQUIRED (test code = PLTMR) NORMAL NORMAL - US PREG UT [id number] 08:50:00Patient Name: FLOR SALVADOR Unit No: [id number] EXAMS: CPT CODE: [id number] US PREG UT T RANSVAGINAL [address] [facility] [address] [place], [place] [address] OBSTETRICAL ULTRASOUNDREPORT Pat. Name: FLOR VALDEZ Pat. No: [id number] Study Date: 03/26/2019 8:12am , Age: 04 1995, 23 Pregnancies: 1 LMP: 07/16/2018 GA by LMP: 36w1d GA by 1st: 36w1d GA by US: 36w5d GA Selected: 36w1d (From First S) MASOUD: 04/22/2019 Referring MD: Beatriz Can Programming Equipment Operator: Lizette Segura RDMS CPT4:USPRUTTRVG Hist/Ind: SCAN#3 LARGE FOR GESTATIONAL AGE MEASUREMENTS AGE GROWTH EVALUATION Measurement GA Range Srce%for GA Ratios ----- ---- ------- BPD 9.2 cm 38w0d (34x9l-70m1q) Hadl BPD 78% FL/BPD 0.77 (0.71 - 0.87) HC 33.7 cm 38w0d (23x5v-20f1p) Hadl HC 84% FL/AC 0.19 (0.20 - 0.24* APD 11.6 cm APD HC/AC 0.90 (0.92 - 1.11* TAD 12.3 cm TAD CI 0.81 (0.70 - 0.86) AC 37.6 cm 41w6d (94f7r-59t3p) Hadl AC >95 FL 7.1 cm 36w2d (55v4v-13t0z) Hadl FL 52% HL 6.4 cm 37w1d (57w9a-38o1m) Ernesto HL 67% GA for sonogram 36w5d (96y3p-45h7w) Weight Estimate: based on (HC,FL) Hadlock Weight: 3838 gm (6933-5937) Hadlo : 8lbs, 7oz Normal: 2672 gm (5973-2531) Brenn Wt% >90 for 36.1 wks Cervical Length: 3.1 cm Heart Rate: 141 bpm Amniotic Fluid Index: 19.9cm(07.7-24.9) Q1: 5.7cm Q2: 5.1cm Q3: 3.4cm Q4: 5.7cm CLINICAL SUMMARY Type of Gestation: Burgos Intrauterine in vertex presentatio size is large for gestational age. growth: Suspect LGA fetus (>90%) motion and organs seen: heart motion seen Placental location: Anterior Placental maturity: Grade 2 [facility] NAME: ESTEPHANIAAriFLOR PATTERSON Radiology Department PHYS: Beatriz Gregorio MD [address] : 1995 AGE: 23 SEX: [place], [place] [address] LOC: RadhaRAD PHONE #: [phone] EXAM DATE: 03/26/2019 STATUS: DEP CLI FAX #: [phone] RAD NO: Page 1 Signed Report (CONTINUED) Patient Name: KIARAFLOR R Unit No: [id number] EXAMS: CPT CODE: [id number] [facility] TRANSVAGINAL [address] (Continued) There is no evidence of placenta previa. Amniotic fluid volume is normal. Uterus and adnexa: No significant abnormality is seen. Giovanna Bonilla M.D. Electronic Signature 03/26/2019 08:50am at 0850 Reported and signed by: Giovanna Bonilla MD CC: Tech nologist: Lizette Segura RDMS Probe: [id number] Trnscrbd D/ (0850) CarlG Orig PrintD/T: S: 03/29/2019 (1525) [facility] NAME: FLOR VALDEZ Radiology Department PHYS: Beatriz Gregorio MD [address] : 1995 AGE: 23 SEX: [place]orecita Val[place] [id number] LOC: RadhaRAD PHONE #: [phone] EXAM DATE: 03/26/2019 STATUS: DEP CLI FAX #: [phone] RAD NO: Page 2 Signed Report Patient Name: FLOR SALVADOR Unit No: [id number] EXAMS: CPT CODE: [id number] US PREG UT TRANSVAGINAL [address] (Continued) [facility] NAME: FLOR SALVADOR Radiology Department PHYS: Beatriz Gregorio MD [address] : 1995 AGE: 23 SEX: [place], [place] [address] LOC: RadhaRAD PHONE#: [phone] EXAM DATE: 03/26/2019 STATUS: DEP CLI FAX #: [phone] RAD NO: Page 3 Signed Report- US FLW UP 2019-03-26 08:50:00Patient Name: FLOR VALDEZ Unit No: [id number] EXAMS: CPT CODE: [id number] US FLW UP [address] [place], [place] [address] OBSTETRICAL ULTRASOUND REPORT Pat. Name: FLOR VALDEZ Pat. No: [id number] Study Date: 03/26/2019 8:12am , Age: 04 1995, 23 Pregnancies: 1 LMP: 07/16/2018 GA by LMP: 36w1d GA by 1st: 36w1d GA by US: 36w5d GA Selected: 36w1d (From First S) MASOUD: 04/22/2019 Referring MD: BEATRIZ CAN Programming Equipment Operator: Lizette Segura RDMS CPT4: USPREGFU Admitting MD: BEATRIZ CAN Hist/Ind: SCAN#3 LARGE FOR GESTATIONAL AGE MEASUREMENTS AGE GROWTH EVALUATION Measurement GA Range Srce %for GA Ratios ----- ---- ------- BPD 9.2 cm 38w0d (35w0d- 41w0d) Hadl BPD 78% FL/BPD 0.77 (0.71 - 0.87) HC 33.7 cm 38w0d (42a1a-69k6o) Hadl HC 84% FL/AC 0.19 (0.20 - 0.24* APD 11.6 cm APD HC/AC 0.90 (0.92 - 1.11* TAD 12.3 cm TAD CI 0.81 (0.70 - 0.86) AC 37.6 cm 41w6d (03m2t-96g8g) Hadl AC >95 FL 7.1 cm 36w2d (02x1l-63d9h) Hadl FL 52% HL 6.4 cm 37w1d (42t2z-66x5q) Ernesto HL 67% GA for sonogram 36w5d (36o5o-43k8z) Weight Estimate: based on (HC,FL) Hadlock Weight: 3838 gm (7255-2841) Hadlo : 8lbs, 7oz Normal: 2672 gm (5736-1654) Brenn Wt% >90 for 36.1 wks Cervical Length: 3.1 cm Heart Rate: 141 bpm Amniotic Fluid Index: 19.9cm (07.7-24.9) Q1: 5.7cm Q2: 5.1cm Q3: 3.4cm Q4: 5.7cm CLINICAL SUMMARY Type of Gestation: Burgos Intrauterine in vertex presentatio size is large for gestational age. growth: Suspect LGA fetus (>90%) motion and organs seen: heart motion seen Placental location: Anterior [facility] NAME: THELMALEONARDO,FLOR Chandler Radiology Department PHYS: Beatriz Gregorio MD [address] : 1995 AGE: 23 SEX: [place], [place] [address] LOC: RadhaRAD PHONE #: [phone] EXAM DATE: 03/26/2019 STATUS: REG CLI FAX #: [phone] RAD NO: Page 1 Signed Report (CONTINUED) Patient Name: FLOR VALDEZ Unit No: [id number] EXAMS: CPT CODE: [id number] US FLW UP 05291 (Continued) Placental maturity : Grade 2 There is no evidence of placenta previa. Amniotic fluid volume is normal. Uterus and adnexa: No significant abnormality is seen. Giovanna Bonilla M.D. Electronic Signature 03/26/2019 08:50am at 0850 Reported and signed by: Giovanna Bonilla MD CC: Beatriz Can MD Technologist: Lizette Segura RDMS Probe: Trnscrbd D/ (0850) CarlG Orig Print D/T: S: 03/26/2019 (0850) [facility] NAME: FLOR VALDEZ Radiology Department PHYS: Beatriz Gregorio MD [address] : 1995 AGE: 23 SEX: [place] [address] LOC: RadhaRAD PHONE #: [phone] EXAM DATE: 03/26/2019 STATUS: REG CLI FAX #: [phone] RAD NO: Page 2 Signed Report Patient Name: FLOR VALDEZ Unit No: [id number] EXAMS: CPT CODE: [id number] US FLW UP [address] (Continued) [facility] NAME: FLOR VALDEZ Radiology Department PHYS: Beatriz Gregorio MD [address] : 1995 AGE: 23 SEX: [place] [address] LOC: RadhaRAD PHONE #: [phone] EXAM DATE: 03/26/2019 STATUS: REG CLI FAX #: [phone] RAD NO: Page 3 Signed Report- US FLW UP 2019-02-12 13:24:00Patient Name: FLOR VALDEZ Unit No: [id number] EXAMS: CPT CODE: [id number] [place]W UP [address] [place], [place] [address] OBSTETRICAL ULTRASOUND REPORT Pat. Name: FLOR VALDEZ Pat. No: [id number] Study Date: 02/12/2019 12:32pm , Age: 04 1995, 23 Pregnancies: 1 LMP: 07/16/2018 GA by LMP: 30w1d GA by 1st: 30w1d GA by US: 31w2d GA Selected: 30w1d (LMP) MASOUD: 04/22/2019 Referring MD: BEATRIZ CAN Programming Equipment Operator: Edyta Vidales RDMS CPT4: USPREGFU Admitting MD: BEATRIZ CAN Hist/Ind: GROWTH SCAN 2 MEASUREMENTS AGE GROWTH EVALUATION Measurement GA Range Srce%for GA Ratios ----- ---- ------- BPD 7.7 cm 31w3d (45q9a-72o6y) Hadl BPD 69% FL/BPD 0.78 (0.71 - 0.87) HC 28.7 cm 31w2d (78f9l-91q6d) Hadl HC 67% FL/AC 0.21 (0.20 - 0.24) APD 9.4 cm APD HC/AC 0.99 (0.97 - 1.16) TAD 9.0 cm TAD CI 0.79 (0.70 - 0.86) AC 28.9 cm 33w0d (30w0d- 36w0d) Hadl AC 93% FL 6.0 cm 31w1d (52a5l-39e5n) Hadl FL 65% HL 5.5 cm 32w0d (93k9x-26m3q) Ernesto HL 81% GA for sonogram 31w2d (80g0l-93q2n) Weight Estimate: based on (BPD,HC,AC,FL) Hadlock Weight: 1916 gm (8499-9429) Hadlo : 4lbs, 3oz Normal: 1477 gm (2181-1431) BrennWt% 77% for 30.1 wks Cervical Length: 4.8 cm Heart Rate: 145 bpm Amniotic Fluid Index: 15.8cm(09.0-23.4) Q1: 2.6cm Q2: 5.2cm Q3: 3.2cm Q4: 4.7cm MATERNAL ANATOMY Ovaries LxHxW (cm) Right 3.1 x 2.1 x 1.8 Vol: 6.1cc CLINICAL SUMMARY Type of Gestation: Burgos Intrauterine in vertex presentation. size is borderline large for gestational age. growth: Borderline LGA fetus (75%-90%) [facility] NAME: FLOR SALVADOR Radiology Department PHYS: Beatriz Gregorio MD [address] : 1995 AGE: 23 SEX: [place], [place] [address] LOC: RadhaRAD PHONE #: [phone] EXAM DATE: 02/12/2019 STATUS: AARON SOLER FAX #: [phone] RAD NO: Page 1 Signed Report (CONTINUED) Patient Name: FLOR SALVADOR Unit No: [id number] EXAMS: CPT CODE: [id number] US FLW UP [address]14[address] (Continued) motion and organs seen: heart motion seen body and limb movements seen Placental location: Anterior Placental maturity : Grade 2 There is no evidence of placenta previa. Amniotic fluid volume is normal. Uterus and adnexa: Nosignificant abnormality is seen. Thank you for allowing us to participate in the care of this patient. Maeve Martinez M.D. Electronic Signature 02/12/2019 01:24pm at 1324 Reported and signed by: Maeve Martinez MD CC: Beatriz Can MD Technologist: Edyta Vidales RDMS Probe: Trnscrbd D/ (1324) [email or web address] Orig Print D/T: S: 02/12/2019 (1324) [facility] NAME: KIARAFLOR Ramesh Radiology Department PHYS: Beatriz Gregorio MD [address] : 1995 AGE: 23 SEX: F [place] [address] LOC: RadhaRAD PHONE #: [phone] EXAM DATE: 02/12/2019 STATUS: REG CLI FAX #: [phone] RAD NO: Page 2 Signed Report Patient Name: FLOR VALDEZ Unit No: [id number] EXAMS: CPT CODE: [id number] US FLW UP [address] (Continued) [facility] NAME: KIARAFLOR Chandler Radiology Department PHYS: Beatriz Burleson MD [address] : 1995 AGE: 23 SEX: F [place] [address] LOC: RadhaRAD PHONE #: [phone] EXAM DATE: 02/12/2019 STATUS: REG CLI FAX #: [phone] RAD NO: Page 3 Signed Report- US PREG AFTER [id number] 09:35:00Patient Name: FLOR VALDEZ Unit No: [id number] EXAMS: CPT CODE: [id number] US PREG AFTER [address] [facility] [place] [facility] [address] [place], [place] [address] OBSTETRICAL ULTRASOUND REPORT Pat. Name: FLOR VALDEZ Pat. No: [id number] Study Date: 12/04/2018 8:12am , Age: 04 1995, 23 Pregnancies: 1 LMP: 07/16/2018 GA by LMP: 20w1d GA by US: 20w3d GA Selected: 20w1d (LMP) MASOUD: 04/22/2019 Referring MD: BEATRIZ CAN Programming Equipment Operator: Rylee Mandujano RDMS, RVT CPT4: [id number] Admitting MD: BEATRIZ CAN Hist/Ind: ANATOMY SCAN 1 MEASUREMENTS AGE GROWTH EVALUATION Measurement GA Range Srce %for GA Ratios ----- ---- ------- BPD 4.7 cm 20w1d (72y2n-59a3x) Hadl BPD 53% FL/BPD 0.72 HC 18.3 cm 20w4d (19w0d- 22w1d) Hadl HC 63% FL/AC 0.22 APD 5.3 cm APD HC/AC 1.16 (1.06 - 1.24) TAD 4.7 cm TAD CI 0.74 (0.70 - 0.86) AC 15.7 cm 20w4d (20l5a-58x6e) Hadl AC61% FL 3.4 cm 20w2d (09b7h-61b3k) Hadl FL 54% HL 3.2 cm 20w5d (34r2r-50u6g) Ernesto HL 60% GA for sonogram 20w3d (48n4w-26b4f) Weight Estimate: based on (BPD,HC,AC,FL) Hadlock Weight: 375 gm (320-429) Hadlock : 0lbs, 13oz Cervical Length: 4.4 cm Heart Rate: 133 bpm MATERNAL ANATOMY Ovaries LxHxW (cm) Right 3.5 x 2.2 x 2.9 Vol: 11.7cc Left 3.6 x 1.4 x 2.5 Vol: 6.6cc CLINICAL SUMMARY Type of Gestation: Burgos Intrauterine in breech presentation. size is appropriate for gestational age. growth: Consistent with normal growth motion and organs seen: heart motionseen body and limb movements seen Four chamber heart observed [facility] NAME: FLOR VALDEZ Radiology Department PHYS: Beatriz Gregorio MD [address] : 1995 AGE: 23 SEX: F [place], [place] [address] LOC: RadhaRAD PHONE #: EXAM DATE: 12/04/2018 STATUS: REG CLI FAX #: [phone] RAD NO: Page 1 Signed Report (CONTINUED) Patient Name: FLOR VALDEZ Unit No: [id number] EXAMS: CPT CODE: [id number] USPREG AFTER TRI 61660 (Continued) Left ventricular outflow tract (LVOT) seen Right ventricular outflow tract (RVOT) seen Normal intracranial anatomy seen Umbilical cord insertion in fetus seen stomach, Renal Fossa, Bladder and Spine seen Three vessel umbilical cord noted abnormalities observed: None seen at this exam Placental location: Anterior Placental maturity : Grade 1 Thereis no evidence of placenta previa. Amniotic fluid volume is normal. Uterus and adnexa: No significant abnormality is seen. Thank you for allowing us to participate in the care of this patient. Zuleika Bianchi. Electronic Signature 12/04/2018 09:35am at 0935 Reported and signed by: Jc Akhtar MD CC: Beatriz Can MD Technologist: Rylee Mandujano RDMS, RVT Probe: Trnscrbd D/ (0935) Kim Goodwin PrintD/T: S: 12/04/2018 (0935) [facility] NAME: JAYE VALDEZJENNY Chandler Radiology Department PHYS: Beatriz Gregorio MD [address] : 1995 AGE: 23 SEX: [id number] LOC: RadhaRAD PHONE #: [phone] EXAM DATE: 12/04/2018 STATUS: REG CLI FAX #: [phone] RAD NO: Page 2 Signed Report Patient Name: FLOR SALVADOR Unit No: [id number] EXAMS: CPT CODE: [id number] US PREG AFTER 1ST TRI 428[address] (Continued) [facility] NAME: FLOR SALVADOR Radiology Department PHYS: Beatriz Gregorio MD [address] : 1995 AGE: 23 SEX: [place] [address] LOC: RadhaRAD PHONE #:[phone] EXAM DATE: 12/04/2018 STATUS: REG CLI FAX #: [phone] RAD NO: Page 3 Signed Report Notes Date/Time Note Provider Source 2019-04-18 09:18:00 [facility] ([facility]) OB Disch REPORT#:[id number] REPORT STATUS: Signed DATE:04/18/19 TIME: 917 PATIENT: FLOR VALDEZ UNIT #: [id number] ROOM/BED: [facility]8-A : [birth year] AGE: 23 SEX: F ATTEND: Beatriz Can MD ADM AUTHOR: Beatriz Can MD * ALL edits or amendments must be made on the electronic/computer document * Subjective Subjective Admission EGA (wks/days): 39 weeks (1 day) EGA at delivery (wks/days): 39 weeks (1 day) Comments: POSTOPERATIVE C/S DAY #2 SUBJECTIVE: No complaints. Scant lochia. Tolerating a regular diet. Ambulatory. Voiding spontaneously. Nursing. Passing flatus. baby doing well. She wants to go home today due to holiday tomorrow. OBJECTIVE: Vital signs stable. Afebrile Chest- clear to auscultation. Heart- regular rate and rhythm without murmurs/ gallops Abdomen - soft, Nontender, active bowel sounds. Fundus is firm, low and nontender. Incision - dry/intact/no erythema ASSESSMENT: Recovering well after section PLAN: Doing well and ready for discharge home. RX: Radford 5/325 mg 1-2 po q 6 hours prn pain #40 RX: Motrin 600 mg 1 tab po q 6 hours prn pain # 60 Resume PNV and iron as before delivery. Return to office in 2 weeks. Discharge instructions have been given. Objective General VS: Vital Signs Date Temp Pulse Resp B/P B/P Mean Pulse Ox FiO2 04/17-04/18 98.7-99.9 94-112 19-20 108-125/73-77 84.5-92.8 Last Documented: Result Date Time B/P 113/75 04/18 032 Temp 99.0 04/18 032 Pulse 94 04/18 0326 Resp 20 04/18 326 B/P Mean 87.9 04/18 326 Pulse Ox 96 04/16 1308 Patient Weight Weight (lb): 202 Weight (kg): 91.626 Result Findings/data: Laboratory Tests Test Result Date Time Hematology WBC (6.6 - 12.1 K/mm3) 12.9 H 04/17 622 RBC (3.45 - 5.01 M/mm3) 3.00 L 04/17 622 Hgb (10.7 - 13.9 g/dL) 8.0 L 04/17 622 Hct (32.1 - 42.1 %) 25.4 L 04/17 622 MCV (84.1 - 94.8 fL) 85 04/17 622 MCH (27 - 35 pg) 26.7 L 04/17 622 MCHC (32.2 - 34.1 gm/dL) 31.5 L 04/17 622 RDW (12.4 - 16.5 %) 14.6 04/17 622 Plt Count (133 - 385 K/mm3) 248 04/17 622 MPV (9.1 - 12.7 fl) 10.0 04/17 622 Neut % (Auto) (56.5 - 79.4 %) 71.5 04/17 622 Lymph % (Auto) (14.3 - 34.3 %) 17.9 04/17 622 Tompkins % (Auto) (5.1 - 10.4 %) 8.3 04/17 622 Eos % (Auto) (0.1 - 3.0 %) 0.2 04/17 622 Baso % (Auto) (0.1 - 1.0 %) 0.2 04/17 622 Neut # (Auto) (K/mm3) 9.3 04/17 622 Lymph # (Auto) (K/mm3) 2.3 04/17 622 Tompkins # (Auto) (K/mm3) 1.1 04/17 622 Eos # (Auto) (K/mm3) 0.02 04/17 622 Baso # (Auto) (K/mm3) 0.0 04/17 622 Immature Plt Fraction (0.0 - 10.8 %) 0.0 04/17 622 Serology Treponema pallidum Ab (NONREACTIVE) NONREACTIVE 04/09 125 Hep Bs Antigen (NONREACTIVE) NONREACTIVE 04/09 125 Hepatitis C Antibody (NONREACTIVE) NONREACTIVE 04/09 125 Hep C Ab Signal/Cutoff (<0.80) 0.08 04/09 125 HIV 1 2 Antibody (NONREACTIVE) NONREACTIVE 04/09 125 Urines Urine Protein (NEGATIVE) NEGATIVE 04/09 1250 Urine Glucose (UA) (NEGATIVE) TRACE H 04/09 1250 Urine Ketones (NEGATIVE) NEGATIVE 04/09 1250 Diagnosis, Assessment Plan Diagnosis, Assessment Plan Problem List/A P: 1. Single live 2. delivery delivered 3. Macrosomia affecting management of mother in third trimester 4. 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 39 weeks gestation of 6. Iron deficiency anemia during Assessment: nml progress, anemia r/t: (iron deficiency ) Plan: routine care, discharge today Plan discussed with: patient, spouse/partner Objective General VS: Vital Signs Date Temp Pulse Resp B/P B/P Mean Pulse Ox FiO2 04/17-04/18 98.7-99.9 94-112 19-20 108-125/73-77 84.5-92.8 Last Documented: Result Date Time B/P 113/75 04/18 326 Temp 99.0 04/18 032 Pulse 94 04/18 0326 Resp 20 04/18 032 B/P Mean 87.9 11/27 0326 Pulse Ox 96 04/16 1308 Patient Weight Weight (lb): 202 Weight (oz): Weight (kg): 91.626 Results Findings/Data: Laboratory Tests: 04/17 04/16 0622 1145 Hematology WBC (6.6 - 12.1 K/mm3) 12.9 H RBC (3.45 - 5.01 M/mm3) 3.00 L Hgb (10.7 - 13.9 g/dL) 8.0 L 9.0 L Hct (32.1 - 42.1 %) 25.4 L 28.1 L MCV (84.1 - 94.8 fL) 85 MCH (27 - 35 pg) 26.7 L MCHC (32.2 - 34.1 gm/dL) 31.5 L RDW (12.4 - 16.5 %) 14.6 Plt Count (133 - 385 K/mm3) 248 MPV (9.1 - 12.7 fl) 10.0 Neut % (Auto) (56.5 - 79.4 %) 71.5 Lymph % (Auto) (14.3 - 34.3 %) 17.9 Tompkins % (Auto) (5.1 - 10.4 %) 8.3 Eos % (Auto) (0.1 - 3.0 %) 0.2 Baso % (Auto) (0.1 - 1.0 %) 0.2 Neut # (Auto) (K/mm3) 9.3 Lymph # (Auto) (K/mm3) 2.3 Tompkins # (Auto) (K/mm3) 1.1 Eos # (Auto) (K/mm3) 0.02 Baso # (Auto) (K/mm3) 0.0 Immature Plt Fraction (0.0 - 10.8 %) 0.0 Blood Type = A+ Discharge Summary Discharge Summary Problem List/A P: 1. Single live 2. delivery delivered 3. Macrosomia affecting management of mother in third trimester 4. 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 39 weeks gestation of 6. Iron deficiency anemia during Date of admission: Date of admission: 04/16/19 Date of discharge: 04/18/19 Admission diagnosis: as per Problem List Hospital course: primary admit (for macrosomia, CPD), epidural anesthesia, nml postop/postpart care Procedures: epidural anesthesia, primary CS delivery (LCT) Baby A: status: live born Gender: female (Cheryl") 1 minute: 8 5 minutes: 9 Anomalies: None seen Nursing data: The data set between the solid lines has been imported from nursing documentation. Any exceptions have been noted below under Provider comments. EGA (weeks/days): 39.1 EGA at admit (weeks): Delivery date infant A: 04/16/19 Delivery time infant A: 0754 Birthweight (gm) A: 3970/8#12 Gender infant A: Female 1 minute infant A: 8 5 minutes infant A: 9 Notes: This patient was admitted at 39 weeks and 1 day gestation for scheduled primary section for macrosomia by US and clinical signs of cephalopelvic disproportion. She has had an uncomplicated course. Blood type A+/ rubella immune/RPR nonreactive/HBSAg negative/HIV negative. She had an uncomplicated primary low cervical transverse section on 04/16/2019 with normal pelvic anatomy noted. Female, Apgars 8/9, weight 8#12. Postoperatively, she has had an uneventful recovery. On POD #1, the Angel catheter was removed and she voided spontaneously, began ambulating, and was advanced to a regular diet. and She continued to ambulate further, and lochia was diminishing. By POD #2,t he epidural catheter was removed. She was changed to oral pain medication with adequate pain relief. She is recovering well and is ready and stable for her requested discharge home. She remains afebrile, her lochia is scant, she tolerates the regular diet and voids spontaneously. Fundus is firm and nontender, below the umbilicus. The incision is clean, dry, intact and without erythema. Discharge instructions have been given in verbal and printed form. She is to return to the office in 2 weeks for follow-up. She has been advised to call sooner for heavy bleeding, increasing or abnormal pain, fevers, or any incisional problems including redness/drainage/wound separation. Plan: routine care, discharge today Instructions: routine instr sheet given, instr and warnings rev'd, specific instr as noted Diet: regular Activity and restrictions: up ad campbell, may shower, pelvic rest, no intercourse for 6 wks, no driving Contraception discussed: abstinence for 4-6 weeks, will discuss at PP visit Discharge meds: Continue taking these medications: PNV WITH FE FUMARATE/FA () 1 EACH TAB 1 TABLET ORAL DAILY. Start taking the following new medications: FERROUS SULFATE (FEOSOL) 325 MG TAB 325 MILLIGRAM ORAL TWICE DAILY WITH MEALS. Qty = 60 Refills = 1 IBUPROFEN (MOTRIN) 600 MG TAB 600 MILLIGRAM ORAL EVERY 6 HOURS NEEDED. as needed for MILD PAIN (SCORE 1 - 3) Qty = 60 Refills = 1 HYDROcodone/APAP (NORCO 7.5/325) 7.5 MG-325 MG TAB 1 TABLET ORAL EVERY FOUR HOURS. Qty = 40 No Refills Prescriptions: e-prescribe Rx drug database reviewed: yes Discharge condition: stable Discharge to: home Follow up in: 2 weeks Discharge diagnosis: as per Problem List Discharge management: greater than 30 mins Time spent: Time spent with patient (minutes): 15 >50% spent on counseling/coordination of care: yes at 1401 RPT #:[id number] END OF REPORT EDITH NOURSE ROGERS [facility] 2019-04-18 09:16:00 [facility] ([facility]) OB Postpart Progr Note REPORT#:[id number] REPORT STATUS: Signed DATE:04/18/19 TIME: 915 PATIENT: FLOR VALDEZ UNIT #: [id number] ROOM/BED: [address] : 97 AGE: 23 SEX: F ATTEND: Beatriz Can MD ADM AUTHOR: Beatriz Can MD * ALL edits or amendments must be made on the electronic/computer document * Subjective Subjective Admission EGA (wks/days): 39 weeks (1 day) EGA at delivery (wks/days): 39 weeks (1 day) Comments: POSTOPERATIVE C/S DAY #2 SUBJECTIVE: No complaints. Scant lochia. Tolerating a regular diet. Ambulatory. Voiding spontaneously. Nursing. Passing flatus. baby doing well. She wants to go home today due to holiday tomorrow. OBJECTIVE: Vital signs stable. Afebrile Chest- clear to auscultation. Heart- regular rate and rhythm without murmurs/ gallops Abdomen - soft, Nontender, active bowel sounds. Fundus is firm, low and nontender. Incision - dry/intact/no erythema ASSESSMENT: Recovering well after section PLAN: Doing well and ready for discharge home. RX: Radford 5/325 mg 1-2 po q 6 hours prn pain #40 RX: Motrin 600 mg 1 tab po q 6 hours prn pain # 60 Resume PNV and iron as before delivery. Return to office in 2 weeks. Discharge instructions have been given. Objective General VS: Vital Signs Date Temp Pulse Resp B/P B/P Mean Pulse Ox FiO2 04/17-04/18 98.7-99.9 94-112 - 108-125/73-77 84.5-92.8 Last Documented: Result Date Time B/P 113/75 04/18 032 Temp 99.0 04/18 0326 Pulse 94 04/18 0326 Resp 20 04/18 0326 B/P Mean 87.9 04/18 0326 Pulse Ox 96 04/16 1308 Patient Weight Weight (lb): 202 Weight (kg): 91.626 Result Findings/data: Laboratory Tests Test Result Date Time Hematology WBC (6.6 - 12.1 K/mm3) 12.9 H 04/17 06 RBC (3.45 - 5.01 M/mm3) 3.00 L 04/17 06 Hgb (10.7 - 13.9 g/dL) 8.0 L 04/17 0622 Hct (32.1 - 42.1 %) 25.4 L 04/17 622 MCV (84.1 - 94.8 fL) 85 04/17 622 MCH (27 - 35 pg) 26.7 L 04/17 622 MCHC (32.2 - 34.1 gm/dL) 31.5 L 04/17 622 RDW (12.4 - 16.5 %) 14.6 04/17 622 Plt Count (133 - 385 K/mm3) 248 04/17 622 MPV (9.1 - 12.7 fl) 10.0 04/17 622 Neut % (Auto) (56.5 - 79.4 %) 71.5 04/17 622 Lymph % (Auto) (14.3 - 34.3 %) 17.9 04/17 622 Tompkins % (Auto) (5.1 - 10.4 %) 8.3 04/17 622 Eos % (Auto) (0.1 - 3.0 %) 0.2 04/17 622 Baso % (Auto) (0.1 - 1.0 %) 0.2 04/17 622 Neut # (Auto) (K/mm3) 9.3 04/17 622 Lymph # (Auto) (K/mm3) 2.3 04/17 622 Tompkins # (Auto) (K/mm3) 1.1 04/17 622 Eos # (Auto) (K/mm3) 0.02 04/17 622 Baso # (Auto) (K/mm3) 0.0 04/17 622 Immature Plt Fraction (0.0 - 10.8 %) 0.0 04/17 622 Serology Treponema pallidum Ab (NONREACTIVE) NONREACTIVE 04/09 1250 Hep Bs Antigen (NONREACTIVE) NONREACTIVE 04/09 1250 Hepatitis C Antibody (NONREACTIVE) NONREACTIVE 04/09 1250 Hep C Ab Signal/Cutoff (<0.80) 0.08 04/09 1250 HIV 1 2 Antibody (NONREACTIVE) NONREACTIVE 04/09 1250 Urines Urine Protein (NEGATIVE) NEGATIVE 04/09 1250 Urine Glucose (UA) (NEGATIVE) TRACE H 04/09 1250 Urine Ketones (NEGATIVE) NEGATIVE 04/09 1250 Diagnosis, Assessment Plan Diagnosis, Assessment Plan Problem List/A P: 1. Single live 2. delivery delivered 3. Macrosomia affecting management of mother in third trimester 4. 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 39 weeks gestation of 6. Iron deficiency anemia during Assessment: nml progress, anemia r/t: (iron deficiency ) Plan: routine care, discharge today Plan discussed with: patient, spouse/partner at 0918 RPT #:[id number] END OF REPORT [facility] 2019-04-17 08:56:00 [facility] ([facility]) OB Postpart Progr Note REPORT#:[id number] REPORT STATUS: Signed DATE:04/17/19 TIME: 0856 PATIENT: FLOR VALDEZ UNIT #: [id number] ROOM/BED: [address] : 97 AGE: 23 SEX: F ATTEND: Beatriz Can MD ADM AUTHOR: Beatriz Can MD * ALL edits or amendments must be made on the electronic/computer document * Subjective Subjective Admission EGA (wks/days): 39 weeks (1 day) EGA at delivery (wks/days): 39 weeks (1 day) Comments: POSTOPERATIVE C/S DAY #1 SUBJECTIVE: No complaints. Scant lochia. Tolerating a regular diet. Ambulatory. No voiding spontaneously yet. Angel just out this am. Nursing. No flatus yet. Incisional pain controlled with epidural. OBJECTIVE: Vital signs stable. Afebrile Chest- clear to auscultation Heart- regular rate and rhythm, without murmurs or gallops Abdomen- soft, nontender, active bowel sounds. Fundus is firm/low/ nontender Incision- dry, intact, no erythema ASSESSMENT: Recovering well after section Antepartum iron deficiency anemia. PLAN: Continue care per orders. Ambulate ad campbell consult today. Resume iron supplementation BID ferrous sulfate Objective General VS: Vital Signs Date Temp Pulse Resp B/P B/P Mean Pulse Ox FiO2 04/16-04/17 98.1-99.6 102-128 18-32 99-132/61-79 75.0-94.0 96-99 Last Documented: Result Date Time B/P 117/78 04/17 034 Temp 98.1 04/17 034 Pulse 102 04/17 0343 Resp 20 04/17 034 Pulse Ox 96 04/16 1308 B/P Mean 94.0 04/16 1300 Patient Weight Weight (lb): 202 Weight (kg): 91.626 Result Findings/data: Laboratory Tests: 04/17 04/16 0622 1145 Hematology WBC (6.6 - 12.1 K/mm3) 12.9 H RBC (3.45 - 5.01 M/mm3) 3.00 L Hgb (10.7 - 13.9 g/dL) 8.0 L 9.0 L Hct (32.1 - 42.1 %) 25.4 L 28.1 L MCV (84.1 - 94.8 fL) 85 MCH (27 - 35 pg) 26.7 L MCHC (32.2 - 34.1 gm/dL) 31.5 L RDW (12.4 - 16.5 %) 14.6 Plt Count (133 - 385 K/mm3) 248 MPV (9.1 - 12.7 fl) 10.0 Neut % (Auto) (56.5 - 79.4 %) 71.5 Lymph % (Auto) (14.3 - 34.3 %) 17.9 Tompkins % (Auto) (5.1 - 10.4 %) 8.3 Eos % (Auto) (0.1 - 3.0 %) 0.2 Baso % (Auto) (0.1 - 1.0 %) 0.2 Neut # (Auto) (K/mm3) 9.3 Lymph # (Auto) (K/mm3) 2.3 Tompkins # (Auto) (K/mm3) 1.1 Eos # (Auto) (K/mm3) 0.02 Baso # (Auto) (K/mm3) 0.0 Immature Plt Fraction (0.0 - 10.8 %) 0.0 Diagnosis, Assessment Plan Diagnosis, Assessment Plan Problem List/A P: 1. Single live 2. delivery delivered 3. Macrosomia affecting management of mother in third trimester 4. 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 39 weeks gestation of Plan: routine care Plan discussed with: patient, spouse/partner at 0900 [facility] #:[id number] END OF REPORT [facility] 2019-04-16 08:29:00 [facility] ([facility]) OB Admission / H P REPORT#:[id number] REPORT STATUS: Signed DATE:04/16/19 TIME: 0829 PATIENT: FLOR VALDEZ UNIT #: [id number] ROOM/BED: [facility] : 97 AGE: 23 SEX: F ATTEND: Beatriz Can MD ADM AUTHOR: Beatriz Can MD * ALL edits or amendments must be made on the electronic/computer document * OB Admission H P Hx HPI: [id number] [place] [id number] PATIENT NAME: FLOR VALDEZ ADMIT DATE: 04/16/19 ACCOUNT NO: [id number] [facility] AGE: 23 SEX: F ADMITTING PHYSICIAN: Beatriz Can MD ATTENDING PHYSICIAN: Beatriz Can MD ADMISSION DATE: 04/16/2019 Date of service will be 04/16/2019. ADMITTING DIAGNOSES: 1. Intrauterine at 39 weeks 1 day gestation. 2. macrosomia by ultrasound at greater than the 90th percentile and greater than 4500 grams. 3. Short maternal stature at 5 feet 2 inches. 4. Clinical signs of cephalopelvic disproportion of mixed maternal factors. HISTORY OF PRESENT ILLNESS: Flor Valdez is a 23-year-old 1, para 0 lady, last menstrual period 07/16/2018, EDC 04/22/2019, admitted today at 39 weeks 1 day gestation for planned medically indicated section at term for macrosomia by ultrasound at greater than the 90th percentile and greater than 4500 grams. She is of relatively short maternal stature at 5 feet 2 inches tall and her pelvis is not felt to be adequate for this size baby. We have discussed the alternative of trial of labor for vaginal with the increased risk of trauma to mother and baby, and the likelihood of failed labor, resulting in section. She has been strongly urged to consider delivery and she has decided she would like to proceed. She has had care in my office since the 8th week of gestation, at which time EDC was confirmed by transvaginal ultrasounds. She had additional ultrasounds at 20 weeks for anatomy that was normal and at 30 weeks for growth, at which time the baby was 77th percentile. Due to the borderline large percentile and extremely accelerated fundal height at 36 weeks of 45 cm fundal height, she had another growth ultrasound and at that time, the estimated weight was greater than the 90th percentile with predicted 40-week weight of 11 pounds 2 ounces (5073 grams). At 36 weeks, the baby already weighed 8 pounds 7 ounces. She has had an otherwise uncomplicated and has been normotensive. labs include a blood type of A positive, antibody screen negative. RPR and HIV are negative in the first and third trimesters. Hepatitis B surface antigen negative, hepatitis C antibody negative, rubella immune, gonorrhea and chlamydia are negative, 1-hour glucose tolerance test was normal at 129, mild anemia in the third trimester at 28 weeks of hemoglobin 9.9 and hematocrit 30.2, followed by iron supplementation. Trio gene carrier testing negative for cystic fibrosis/spinal muscular atrophy/fragile X. Noninvasive testing for genetic screening is low risk with female gender. Hemoglobin electrophoresis is normal and AFP testing is negative. PATIENT NAME: FLOR VALDEZ >>>>>>>>>>>>>>>>>>>>>>>>>>>>>>>> END OF PAGE <<<<<<<<<<<<<<<<<<<<<<<<<<<<<<<< She received Tdap vaccine at 28 weeks. PAST MEDICAL HISTORY: ALLERGIES: NO KNOWN DRUG ALLERGIES. MEDICATIONS: vitamins and iron. PAST SURGICAL HISTORY: [place] teeth extraction at age 19. ILLNESSES: None. INJURIES: None. SOCIAL HISTORY: She is a nonsmoker. She denies drug or alcohol use. OBSTETRICAL AND GYNECOLOGIC HISTORY: Menarche at age 14 with regular interval. No history of sexually transmitted diseases. FAMILY HISTORY: Maternal grandmother with diabetes, maternal grandmother with breast cancer in her early 50s. REVIEW OF SYSTEMS: A 12-point review of systems is done and is negative except for the late symptoms of fatigue and low pelvic musculoskeletal discomforts. PHYSICAL EXAMINATION: GENERAL: The patient is a well-developed, well-nourished, 5 feet 2 inch female weighing 201.2 pounds, and at her last visit with pre- weight of 190 pounds. HEENT: Normocephalic and atraumatic. NECK: Supple. No thyromegaly or lymphadenopathy. CHEST: Clear to auscultation with equal and bilateral breath sounds. HEART: Regular rate and rhythm without murmurs or gallops. BREASTS: Deferred as noncontributory. SKIN: Warm and dry without significant lesions. NEUROLOGIC AND PSYCHIATRIC: She is oriented to person, place, and time. She has normal mood and affect, and appears to have good insight and judgment. She has no neurologic deficits and is grossly intact neurologically. ABDOMEN: Soft, nontender. Good bowel sounds. No hepatosplenomegaly. No costovertebral angle tenderness. No evidence of hernia. Fundal height is very enlarged at 45.5 cm. heart tones are 150s in the left upper uterus. Baby is vertex by recent ultrasound. EXTREMITIES: No cyanosis or clubbing. She has a trace of edema in the lower extremities. PELVIC: External genitalia are clean and without lesions. The vagina is clean, well rugated, and well supported. The cervix is long, closed, and posterior. Uterus is enlarged and gravid, 45.5 cm fundal height, soft, and nontender. Adnexa are not palpable due to uterine enlargement. Anus and perineum appear normal. RECTAL: Deferred as noncontributory. IMPRESSION: 1. Intrauterine at 39 weeks 1 day gestation. 2. macrosomia by ultrasound at greater than the 90th percentile and PATIENT NAME: FLOR VALDEZ >>>>>>>>>>>>>>>>>>>>>>>>>>>>>>>> END OF PAGE <<<<<<<<<<<<<<<<<<<<<<<<<<<<<<<< greater than 4500 grams. 3. Short maternal stature at 5 feet 2 inches. 4. Clinical signs of cephalopelvic disproportion of mixed maternal factors. PLAN: Ms. Valdez is admitted for scheduled medically indicated primary section for macrosomia and suspected cephalopelvic disproportion of mixed maternal factors. We have discussed the planned section procedure and the preoperative and postoperative expectations and instructions have been given. We have specifically discussed the section risks including, but not limited to: Bleeding, blood transfusion with attendant risks of transfusion reaction and viral infections; injury to adjacent internal organs including bowels, bladder, fallopian tubes, ovaries, major blood vessels, and urine tubes; infections of the uterine incision or abdominal incision; possible deep blood clots of the legs or lungs; possible hysterectomy to control life-threatening hemorrhage; and possible anesthetic risk. We plan epidural anesthesia, which is the safest type for delivery and the most common side effect is a spinal headache. She has had all her questions answered to her satisfaction and gives informed consent for primary section delivery at this time. Dictated By: Beatriz Can MD WT: HP:BRITNEY/IVAN/SOFÍA Conf#: [id number]/DID#: [id number] Authenticated by Beatriz Can MD On 04/16/2019 08:45:12 AM at 0845 Allergies Coded Allergies: No Known Allergies (04/16/19) at 0848 RPT #:[id number] END OF REPORT [facility] 2019-04-16 08:29:00 [facility] ([facility]) OB Delivery Note REPORT#:[id number] REPORT STATUS: Signed DATE:04/16/19 TIME: 828 PATIENT: FLOR VALDEZ UNIT #: [id number] ROOM[address]BED: [address] : 97 AGE: 23 SEX: F ATTEND: Beatriz Can MD ADM AUTHOR: Beatriz Can MD * ALL edits or amendments must be made on the electronic/computer document * OB Delivery Pre-delivery GBS status: GBS status: negative Meds prior to delivery: Ancef 2 grams IV, Zegerid, Tylenol evaluation at delivery: NRP certified personnel Admission EGA (wks/days): 39 weeks (1 day) EGA at delivery (wks/days): 39 weeks (1 day) General VS: Last Documented: Result Date Time Temp 98.3 04/16 617 Resp 18 04/16 617 B/P Mean 92.0 04/16 617 B/P 121/74 04/16 617 Pulse 96 04/16 617 Membranes: AROM ROM date: 04/16/19 ROM time: 752 Amniotic fluid: clear Baby A Information Baby A information Delivery date: 04/16/19 Delivery time: 0754 status: live born Wt of baby (grams): 3970 Wt of baby (lbs/oz): 8#12 Gender: female (Cheryl") 1 minute: 8 5 minutes: 9 Presentation: vertex (OT, floating high above inlet) Anomalies: None seen ABG details Baby A Cord blood gases: not collected Nuchal cord Baby A Nuchal cord: no Anomalies: None seen 3 vessel cord Placenta spontaneous/intact 45 second cord clamp delay. Delivery section Abdominal incision: Pfannenstiel Primary indication: CPD (with macrosomia >90%ile by US) Priority: scheduled Antibiotic prior to incision: Ancef 2 grams IV )(SCDs applied activated: Yes Incision: low transverse Hemorrhage: no (Normal PP bleeding) Consent: indication discussed, questions answered, pt consent to op delivery Mother's condition: mother stable Infant's condition: stable in room Operative Note-Full )(Start date: 04/16/19 )(Start time: 0745 (Delivery at 0754) )(Pre-procedure diagnosis: Intrauterine [id number] Cephalopelvic disproportion, mixed maternal/ factors macrosomia by ultrasound>90%ile Relatively short maternal stature at 5'2". )(Post-procedure diagnosis: same as pre-procedure dx )(Procedures performed: Primary low cervical transverse section )(Technique/Procedure: After appropriate preoperative hydration, and heart rate monitoring with reactive tracing noted, the patient is taken to the operating room and placed in the sitting position. An epidural anesthetic is placed to the appropriate surgical level. The patient is placed in the supine position with a left lateral tilt. heart tones are again auscultated and found to be in the baseline range. A Angel catheter is placed under sterile conditions. The abdomen is then prepped and draped in the usual sterile fashion. The skin knife is used to make a Pfannenstiel skin incision 2 fingerbreadths above the pubic symphysis. The subcutaneous tissue is divided the length of the incision with the deep knife. The fascia is scored with the Bovie transversely and then nicked transversely at the midline to open both layers. The fascial dissection is extended bilaterally in a curvilinear fashion with the Bovie cautery. The superior fascia is grasped with Oschner clamps, and is dissected from the underlying rectus muscle with cautery and blunt dissection for adequate exposure. The rectus muscle is bluntly at the midline aponeurosis. The peritoneum is encountered, tented and entered with blunt finger dissection, then extended longitudinally with cautery dissection for adequate exposure. The lower uterine segment is found to be well developed. The vesicouterine peritoneum is incised transversely, and the bladder flap is gently and bluntly dissected away from the lower uterine segment, and further retracted with the DeLee retractor. A scoring low cervical transverse uterine incision is made with the knife, and this incision is deepened at the midpoint to the level of the membranes. The incision is extended in a low cervical transverse fashion with blunt finger dissection in a cephalald/caudad manner, to avoid lateral uterine vessel laceration. Membranes are ruptured with return of clear amniotic fluid. The vertex is encountered in the occiput transverse position and floating high out of the pelvis and above the pelvic inlet. The vertex is delivered through the uterine incision with mild fundal pressure by the assistant community manager. The shoulders and body next follow and the baby is atraumatically delivered, head down position, onto the mother s legs. The oropharynx and nares are well-suctioned with the bulb syringe. The cord is clamped and cut after a 45 second cord clamp delay. The vigorous and viable female has good cry, color, tone, grimace and heart rate shortly after delivery and Apgars are assigned as 8 at 1 minute, and 9 at 5 minutes. The baby is found to weigh 3970 gm/8#12oz. The baby is immediately shown to the parents and then handed off to the baby nurse in attendance for further evaluation and care. Cord blood is obtained. The placenta is delivered spontaneously, and found to be intact with a 3 vessel cord. The uterus is exteriorized and wrapped in a moist lap sponge. The uterus/ fallopian tubes and ovaries all appear normal. The uterine incision is repaired in 2 layers: the first layer is repaired with a running locked suture of 0- Vicryl, and the second layer is imbricated with a suture of 2-0 Vicryl. Hemostasis is good, and good tone has returned to the uterine fundus. The uterus is replaced into the normal pelvic position. The lateral colic gutters are well irrigated. The anterior parietal peritoneum is closed with a running suture of 2-0 Vicryl from apex to apex. The subfascial plane is irrigated and hemostasis is obtained with the cautery. The fascia is closed with a running suture of 0- Vicryl, beginning at either apex, and meeting in the midline. The subcutaneous tissue is irrigated, and this layer is closed with a subcutaneous suture of 2-0 Vicryl, followed by a subdermal suture of 2-0 Vicryl, to bring the skin edges closer together. The final skin layer is closely reapproximated with a subcuticular suture of 3-0 Vicryl, followed by a sterile Dermabond dressing. The patient has tolerated the procedure well. Her is with her at delivery and both have had a chance to mathis with the baby. Sponge and needle counts are reportedly correct x 2 at the close of the case. Instrument count is reportedly correct as well. The radiofrequency pad scan for retained sponges is negative. Mother is transferred to the PACU in good condition, and baby is transported with Dad to the [facility], also located in the PACU. Parents and baby will be reunited there. )(Primary Surgeon: Beatriz Can MD )(Paver Operator(s): Elvis AVITIA Anesthesiologist: Dr. Steve Mackey )(Anesthesia: combined spinal/epi Indications: C/S anesthesia )(Operative findings: Normal uterus/fallopian tubes/ovaries )(Complications: none )( Estimated blood loss (ml): 800 )(Specimens removed/altered: none Drain(s)/tube(s): Angel to gravity Fluids: Crystalloid 2000 ml Urine output: 100 ml clear Disposition: PACU, stable Counts: Sponge count: correct Instrument count: correct Needle count: correct Wound class: clean-contaminated Blood Loss/Details Blood loss at delivery: <1000 ml EBL (ml's): 800 at 0851 [facility] #:[id number] END OF REPORT [facility] 2019-04-13 12:06:00 [id number] [facility] [place] [id number] PATIENT NAME: FLOR VALDEZ ADMIT DATE: 04/16/19 ACCOUNT NO: [id number] ROOM NO: [place] [address] AGE: 23 SEX: F ADMITTING PHYSICIAN: Beatriz Can MD ATTENDING PHYSICIAN: Beatriz Can MD ADMISSION DATE: 04/16/2019 Date of service will be 04/16/2019. ADMITTING DIAGNOSES: 1. Intrauterine at 39 weeks 1 day gestation. 2. macrosomia by ultrasound at greater than the 90th percentile and greater than 4500 grams. 3. Short maternal stature at 5 feet 2 inches. 4. Clinical signs of cephalopelvic disproportion of mixed maternal factors. HISTORY OF PRESENT ILLNESS: Flor Valdez is a 23-year-old 1, para 0 lady, last menstrual period 07/16/2018, EDC 04/22/2019, admitted today at 39 weeks 1 day gestation for planned medically indicated section at term for macrosomia by ultrasound at greater than the 90th percentile and greater than 4500 grams. She is of relatively short maternal stature at 5 feet 2 inches tall and her pelvis is not felt to be adequate for this size baby. We have discussed the alternative of trial of labor for vaginal with the increased risk of trauma to mother and baby, and the likelihood of failed labor, resulting in section. She has been strongly urged to consider delivery and she has decided she would like to proceed. She has had care in my office since the 8th week of gestation, at which time EDC was confirmed by transvaginal ultrasounds. She had additional ultrasounds at 20 weeks for anatomy that was normal and at 30 weeks for growth, at which time the baby was 77th percentile. Due to the borderline large percentile and extremely accelerated fundal height at 36 weeks of 45 cm fundal height, she had another growth ultrasound and at that time, the estimated weight was greater than the 90th percentile with predicted 40-week weight of 11 pounds 2 ounces (5073 grams). At 36 weeks, the baby already weighed 8 pounds 7 ounces. She has had an otherwise uncomplicated and has been normotensive. labs include a blood type of A positive, antibody screen negative. RPR and HIV are negative in the first and third trimesters. Hepatitis B surface antigen negative, hepatitis C antibody negative, rubella immune, gonorrhea and chlamydia are negative, 1-hour glucose tolerance test was normal at 129, mild anemia in the third trimester at 28 weeks of hemoglobin 9.9 and hematocrit 30.2, followed by iron supplementation. Trio gene carrier testing negative for cystic fibrosis/spinal muscular atrophy/fragile X. Noninvasive testing for genetic screening is low risk with female gender. Hemoglobin electrophoresis is normal and AFP testing is negative. PATIENT NAME: FLOR VALDEZ She received Tdap vaccine at 28 weeks. PAST MEDICAL HISTORY: ALLERGIES: NO KNOWN DRUG ALLERGIES. MEDICATIONS: vitamins and iron. PAST SURGICAL HISTORY: [place] teeth extraction at age 19. ILLNESSES: None. INJURIES: None. SOCIAL HISTORY: She is a nonsmoker. She denies drug or alcohol use. OBSTETRICAL AND GYNECOLOGIC HISTORY: Menarche at age 14 with regular interval. No history of sexually transmitted diseases. FAMILY HISTORY: Maternal grandmother with diabetes, maternal grandmother with breast cancer in her early 50s. REVIEW OF SYSTEMS: A 12-point review of systems is done and is negative except for the late symptoms of fatigue and low pelvic musculoskeletal discomforts. PHYSICAL EXAMINATION: GENERAL: The patient is a well-developed, well-nourished, 5 feet 2 inch female weighing 201.2 pounds, and at her last visit with pre- weight of 190 pounds. HEENT: Normocephalic and atraumatic. NECK: Supple. No thyromegaly or lymphadenopathy. CHEST: Clear to auscultation with equal and bilateral breath sounds. HEART: Regular rate and rhythm without murmurs or gallops. BREASTS: Deferred as noncontributory. SKIN: Warm and dry without significant lesions. NEUROLOGIC AND PSYCHIATRIC: She is oriented to person, place, and time. She has normal mood and affect, and appears to have good insight and judgment. She has no neurologic deficits and is grossly intact neurologically. ABDOMEN: Soft, nontender. Good bowel sounds. No hepatosplenomegaly. No costovertebral angle tenderness. No evidence of hernia. Fundal height is very enlarged at 45.5 cm. heart tones are 150s in the left upper uterus. Baby is vertex by recent ultrasound. EXTREMITIES: No cyanosis or clubbing. She has a trace of edema in the lower extremities. PELVIC: External genitalia are clean and without lesions. The vagina is clean, well rugated, and well supported. The cervix is long, closed, and posterior. Uterus is enlarged and gravid, 45.5 cm fundal height, soft, and nontender. Adnexa are not palpable due to uterine enlargement. Anus and perineum appear normal. RECTAL: Deferred as noncontributory. IMPRESSION: 1. Intrauterine at 39 weeks 1 day gestation. 2. macrosomia by ultrasound at greater than the 90th percentile and PATIENT NAME: FLOR VALDEZ greater than 4500 grams. 3. Short maternal stature at 5 feet 2 inches. 4. Clinical signs of cephalopelvic disproportion of mixed maternal factors. PLAN: Ms. Valdez is admitted for scheduled medically indicated primary section for macrosomia and suspected cephalopelvic disproportion of mixed maternal factors. We have discussed the planned section procedure and the preoperative and postoperative expectations and instructions have been given. We have specifically discussed the section risks including, but not limited to: Bleeding, blood transfusion with attendant risks of transfusion reaction and viral infections; injury to adjacent internal organs including bowels, bladder, fallopian tubes, ovaries, major blood vessels, and urine tubes; infections of the uterine incision or abdominal incision; possible deep blood clots of the legs or lungs; possible hysterectomy to control life-threatening hemorrhage; and possible anesthetic risk. We plan epidural anesthesia, which is the safest type for delivery and the most common side effect is a spinal headache. She has had all her questions answered to her satisfaction and gives informed consent for primary section delivery at this time. Dictated By: Beatriz Can MD WT: HP:BRITNEY/IVAN/SOFÍA Conf#: [id number]/DID#: [id number] Authenticated by Beatriz Can MD On 04/16/2019 08:45:12 AM at 0845 PATIENT NAME: FLOR VALDEZ [facility]
[2024-08-14] MEDS ORDERED: GABAPENTIN 300 MG CAP ONE (09:02)
[2024-08-14] MEDS ORDERED: KETOROLAC 30 MG/ML INJ ONE (09:02)
[2024-08-14] MEDS ORDERED: ONDANSETRON 4 MG (ODT) TAB ONE (09:03)
--- NOTE | 2024-08-14 09:27 | ER ---
Nurse's Notes [facility] Name: Joleen Tate Age: 28 yrs Sex: Female : 1995 Arrival Date: 08/14/2024 Time: 08:22 Bed 14 Private MD: Diagnosis: Dental caries, unspecified Presentation: 08/14 08:33 Chief complaint: Patient states: right sided tooth pain X 2 days, the right side of her iw jaw swelled up last night. Coronavirus screen: At this time, the client does not indicate any symptoms associated with coronavirus-19. Ebola Screen: No symptoms or risks identified at this time. Initial Sepsis Screen: Does the patient meet any 2 criteria? No. Patient's initial sepsis screen is negative. Does the patient have a suspected source of infection? No. Patient's initial sepsis screen is negative. Risk Assessment: Do you want to hurt yourself or someone else? Patient reports no desire to harm self or others. Onset of symptoms was August 12, 2024. 08:33 Method Of Arrival: Ambulatory iw 08:33 Acuity: ROBI 4 iw MARRIAGE THERAPIST: 09:38 LMP N/A - control method, Not ap3 Historical: - Allergies: 08:34 No Known Allergies; iw - Home Meds: 08:34 None [Active]; iw - PMHx: 08:34 None; iw - PSHx: 08:34 Cholecystectomy; tubal ligation; section; iw - Immunization history:: Adult Immunizations not up to date. - Infectious Disease History:: Denies. - Social history:: Smoking status: Patient denies any tobacco usage or history of. - Family history:: not pertinent. - Hospitalizations: : No recent hospitalization is reported. Screenin:27 [facility] ED Fall Risk Assessment (Adult) History of falling in the last 3 months, jl7 including since admission No falls in past 3 months (0 pts) Confusion or Disorientation No (0 pts) Intoxicated or Sedated No (0 pts) Impaired Gait No (0 pts) Mobility Assist Device Used No (0 pt) Altered Elimination Yes (1 pt) Score/Fall Risk Level 0 - 2 = Low Risk Oriented to surroundings, Maintained a safe environment. Abuse screen: Denies threats or abuse. Denies injuries from another. Nutritional screening: No deficits noted. Tuberculosis screening: No symptoms or risk factors identified. Assessment: 08:30 General: Appears in no apparent distress. uncomfortable, Behavior is calm, cooperative, jl7 appropriate for age. Pain: Complains of pain in mouth Pain currently is 10 out of 10 on a pain scale. Neuro: Level of Consciousness is awake, alert, obeys commands, Oriented to person, place, time, situation. Cardiovascular: Patient's skin is warm and dry. Respiratory: Airway is patent Respiratory effort is even, unlabored, Respiratory pattern is regular, symmetrical. EENT: Poor dentition noted. Swelling noted to left lower jaw. Vital Signs: 08:33 Resp 18; Pulse Ox 98% ; Weight 104.33 kg; Height 5 ft. 2 in. ; Pain 10/10; iw 09:27 BP 119 / 88; Pulse 99; Resp 15; Temp 98.3; Pulse Ox 98% ; jl7 09:37 BP 126 / 73; Pulse 95; Resp 17; Pulse Ox 98% on R/A; ap3 08:33 Body Mass Index 42.07 (104.33 kg, 157.48 cm) iw 08:33 Pain Scale: Adult iw ED Course: 08:26 Patient arrived in ED. cj3 08:27 Cecil Redd MD is Attending Physician. rn 08:34 Triage completed. iw 08:35 Rafy Mendiola RN is Primary Nurse. jl7 08:35 Arm band placed on. iw 09:27 Patient has correct armband on for positive identification. Bed in low position. Call jl7 light in reach. Side rails up X 1. Provided Education on: use of call brock. 09:27 No provider procedures requiring assistance completed. Patient did not have IV access jl7 during this emergency room visit. Administered Medications: 09:07 Drug: Ondansetron PO 4 mg PO once Route: PO; jl7 09:37 Follow up: Response: No adverse reaction; Nausea is decreased ap3 09:25 Drug: Ketorolac IM 30 mg IM once Route: IM; Site: right deltoid; jl7 09:37 Follow up: Response: No adverse reaction; Pain is decreased ap3 09:25 Drug: Clindamycin PO 300 mg PO once Route: PO; jl7 09:37 Follow up: Response: No adverse reaction ap3 09:25 Drug: Gabapentin PO 300 mg PO once Route: PO; jl7 09:37 Follow up: Response: No adverse reaction; Pain is decreased ap3 Medication: :27 VIS not applicable for this client. jl7 Outcome: : Discharge ordered by . rn :38 Discharged to home ambulatory, ap3 :38 Condition: good :38 Discharge instructions given to patient, Instructed on discharge instructions, follow up and referral plans. medication usage, Demonstrated understanding of instructions, follow-up care, medications, Prescriptions given X 3, :38 Patient left the ED. ap3 Signatures: Silvia Orona, RN Cecil Rainey MD MD rn Leal, Jahala, RN RN jl7 Anuja Shaw RN RN ap3 Payton Pelletier 3
--- NOTE | 2024-08-14 09:27 | EDPHYS ---
Physician Documentation [facility] Name: Joleen Tate Age: 28 yrs Sex: Female : 1995 Arrival Date: 08/14/2024 Time: 08:22 Bed 14 Private MD: ED Physician Cecil Redd HPI: 08/14 08:36 This 28 yrs old Female presents to ER via Ambulatory with complaints of Abscess. rn 08:36 the patient presents with a swollen area of the mouth. Onset: The symptoms/episode rn began/occurred 2 day(s) ago. Modifying factors: the symptoms are alleviated by nothing, the symptoms are aggravated by touching, Talking. Severity of symptoms: At their worst the symptoms were moderate, in the emergency department the symptoms are unchanged. The patient has experienced a previous episode. Patient reports started again with dental pain right lower tooth, has had trouble with this before and has had dental infections in the past. Knows she needs tooth pulled but does not have insurance at this time. Reports increased swelling this morning. No fever or chills. Hurts no matter what she does. No difficulty swallowing or breathing.. 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 - Infectious Disease History:: Denies. - Social history:: Smoking status: Patient denies any tobacco usage or history of. - Family history:: not pertinent. - Hospitalizations: : No recent hospitalization is reported. ROS: 08:36 Constitutional: Negative for fever, chills, and weight loss, ENT: Positive for dental rn pain Neck: Negative for injury, pain, and swelling, Cardiovascular: Negative for chest pain, palpitations, and edema, Respiratory: Negative for shortness of breath, cough, wheezing, and pleuritic chest pain, Exam: 08:36 Constitutional: This is a well developed, well nourished patient who is awake, alert, rn and in no acute distress. ENT: Poor dentition with deep dental caries on right mandibular side. No gingival abscess noted. Mild buccal swelling without fluctuance or induration. Nothing palpated feels like an abscess or fluid collection. Vital Signs: 08:33 Resp 18; Pulse Ox 98% ; Weight 104.33 kg; Height 5 ft. 2 in. ; Pain 10/10; iw 09:27 BP 119 / 88; Pulse 99; Resp 15; Temp 98.3; Pulse Ox 98% ; jl7 09:37 BP 126 / 73; Pulse 95; Resp 17; Pulse Ox 98% on R/A; ap3 08:33 Body Mass Index 42.07 (104.33 kg, 157.48 cm) iw 08:33 Pain Scale: Adult iw MDM: 08:27 Medical Screening Exam initiated rn 09:26 Differential diagnosis: Dental abscess, gingivitis, dental carry, buccal space rn cellulitis. Data reviewed: vital signs, nurses notes, and as a result, I will discharge patient. Counseling: I had a detailed discussion with the patient and/or guardian regarding the historical points, exam findings, and any diagnostic results supporting the discharge/admit diagnosis, the need for outpatient follow up, to return to the emergency department if symptoms worsen or persist or if there are any questions or concerns that arise at home. Response to treatment: the patient's symptoms have mildly improved after treatment, and as a result, I will discharge patient. Special discussion: I discussed with the patient/guardian in detail that at this point there is no indication for admission to the hospital. It is understood, however, that if the symptoms persist or worsen the patient needs to return immediately for re-evaluation. Special discussion: Based on the history and exam findings, there is no indication for further emergent testing or inpatient evaluation. I discussed with the patient/guardian the need to see a dentist for further evaluation of the symptoms. 09:26 ED course: No evidence of abscess at this time, no indication for incision and rn drainage. Will place on antibiotics and prescribe pain medication. Patient understands need to see dentist urgently.. Administered Medications: 09:07 Drug: Ondansetron PO 4 mg PO once Route: PO; jl 09:37 Follow up: Response: No adverse reaction; Nausea is decreased ap3 09:25 Drug: Ketorolac IM 30 mg IM once Route: IM; Site: right deltoid; jl 09:37 Follow up: Response: No adverse reaction; Pain is decreased ap3 09:25 Drug: Clindamycin PO 300 mg PO once Route: PO; jl7 09:37 Follow up: Response: No adverse reaction ap3 09:25 Drug: Gabapentin PO 300 mg PO once Route: PO; jl7 09:37 Follow up: Response: No adverse reaction; Pain is decreased ap3 Disposition Summary: 08/14/24 09:27 Discharge Ordered Notes: Location: Home rn Problem: new rn Symptoms: have improved rn Condition: Stable rn Diagnosis - Dental caries, unspecified rn Followup: rn - With: Private Physician - When: As needed - Reason: Recheck today's complaints, Re-evaluation by your physician Discharge Instructions: - Discharge Summary Sheet rn - Dental Caries, Adult rn - Dental Pain rn Forms: - Medication Reconciliation Form rn - 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 - Prescription Opioid Use rn - Patient Portal Instructions rn - Leadership Thank You Letter rn Prescriptions: - gabapentin 100 mg Oral capsule - take 1 capsule ORAL route 2 times per day As needed; 14 capsule; Refills: 0, rn Product Selection Permitted - Clindamycin HCl 300 mg Oral Capsule - take 1 capsule ORAL route every 6 hours for 10 days; 40 capsule; Refills: 0, rn Product Selection Permitted - Tramadol 50 mg Oral Tablet - take 1 tablet ORAL route every 8 hours as needed; 12 tablet; Refills: 0, rn Product Selection Permitted Signatures: Silvia Orona RN Cecil Rainey MD MD rn Leal, Jahala, RN RN jl7 Anuja Shaw RN ap3
[2024-08-14 09:48] VITALS: O2SAT 98
[2024-08-14 09:53] VITALS: TEMP 98.3
[2024-08-14 09:58] VITALS: BP 126/73
== END 2024-08-14 09:38 | disposition home or self-care (01) ==
LOC: ER 08:22
DX: K02.9 Dental caries, unspecified (principal)
CPT/HCPCS: 96372; 99284; Q0162